=== PATIENT | male | born 1945 | race Caucasian/White ===

== ENCOUNTER 2024-10-29 15:31 | Emergency (ER) | payer OTHER, BC ==
--- OUTSIDE RECORDS SUMMARY | 2024-10-29 15:34 | XMS REPORT | Continuity of Care Document ---
Author Name Unknown Address [address] [facility] [address] [place] [address] [facility] Address [address] [facility] [address] [place] [address] Care Team Providers Care Digester Hand Name Role Phone Pcp, Patient Does Not Have A Primary Care Physic hebert Keven Montemayor Attending Clinician Unavailable Ayo Dangelo MD Attending Clinic hebert Darya Chin MD Attending Clinician [phone] DELIA MONTEMAYOR Attending Clinician Unavailable GERMAINE JACKSON Attending Clinician Unavailab Germaine Chen Attending Clinician Unknown, Attending Attending Clinician Unavailab le Doctor Unassigned, [place] Attending Clinician U NAV Cornelius Attending Clinician Unavailable ADALI PRADHAN Attending Clinician Unavail able AYO DANGELO Admitting Clinician Unav ailNAV Byrnes Admitting Clinician Unavailable Payers Payer Name Policy Type Policy Number Effective Date Expiration Date Source MEDICARE PART A \T\ B [id number] 2010 00:00:00 [facility] [id number] 2021 00:00:00 [place] [id number] 2010 00:00:00 [facility] MEDICARE JACY EVANS [id number] 2010 00:00:00 [facility] Problems Condition Name Condition Details Condition Category Status Onset Date Resolution Date Last Treatment Date Treating Clinician Comments Source Unspecifie d urinary incontinen ce Unspecifie d urinary incontinen ce Disease Active 04-08 00:00: 00 [facility] st Urinary incontinen ce Urinary incontinen ce Disease Active 08-11 00:00: 00 [facility] Incontinen ce Incontinen ce Disease Active 05-26 00:00: 00 [facility] Malignant neoplasm of upper lobe, 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, right bronchus or lung Problem [facility] OAG - Open-angle glaucoma Unspecifie d open-angle glaucoma, stage unspecifie d Problem [facility] Malignant neoplasm of middle lobe, 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, bronchus or lung Problem [facility] Chronic fatigue syndrome Chronic fatigue Problem [facility] [id number] Glaucoma of both eyes, unspecifie d glaucoma type Problem [facility] [id number] History of prostatect teresa Problem [facility] [id number] Body mass index (BMI) 33.0-33.9, adult Problem [facility] Secondary malignant neoplasm of lung Secondary malignant neoplasm of unspecifie d lung Problem [facility] [id number] Other obesity due to excess calories Problem [facility] Malignant tumor of prostate Malignant neoplasm of prostate Problem [facility] [id number] Chronic nasal congestion Problem [facility] [id number] Asymptomat ic hypertensi ve urgency Problem [facility] [id number] Allergic rhinitis, unspecifie d seasonalit y, unspecifie d trigger Problem [facility] [id number] Other chronic sinusitis Problem [facility] 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 Predn[facility] ne Propensi ty to adverse reaction s to drug Active Other (See Comments) 12-04 00:00: 00 Other reaction( s): Eye Pressure [facility] st PREDNISO NE DRUG INGREDI Active Other-Cmnt 12-04 00:00: 00 [facility] Predniso ne Propensi ty to adverse reaction s Active Other - See comments 12-04 00:00: 00 Other reaction( s): Eye Pressure [facility] predniso ne predniso ne Active Eye Pressure [facility] NO KNOWN ALLERGIE S Drug Class Active [facility] Family History Family Member Diagnosis Comments Start Date Stop Date Sourc e Natural father Alzheimer's disease German turcios Paternal grandfather Diabetes German Bejarano Social History Social Habit Start Date Stop Date Quantity Comments Source History of tobacco use Light tobacco smoker German Bejarano Sexual orientation H oucee Bejarano Alcoholic beverage intake 2024-10-14 00:00:00 2024-10-14 00:00:00 Current drinker of alcohol (finding) German Bejarano History of Social function 2024-10-14 00:00:00 2024-10-14 00:00:00 German Bejarano Exposure to SARS-CoV-2 (event) 2022-01-24 00:00:00 2022-02-03 10:54:00 Not sure [facility] Tobacco use and exposure 2022-01-03 00:00:00 2022-01-03 00:00:00 User of smokeless tobacco German Bejarano Tobacco Comment 2022-01-03 00:00:00 2022-01-03 00:00:00 cigar = x1/month / smokeless tobacco x 48 years , quit 2009 German Bejarano Alcohol Comment 2016-04-28 00:00:00 2016-04-28 00:00:00 x1 / day German Bejarano Sex assigned at 1945 00:00:00 1945 00:00:00 M German Bejarano Smoking Status Start Date Stop Date Source Tobacco smoking consumption unknown [facility] Light tobacco smoker 2022-01-03 00:00:00 German Bejarano Never Smoker [facility] Medications Ordered Medication Name Filled Medication Name Start Date Stop Date Current Medication? Ordering Clinician Indication Dosage Frequency Signature (SIG) Comments Components Source ASCORBATE CALCIUM (VITAMIN C ORAL) 10-30 10:11: 52 Yes 500mg QD Take 500 mg by mouth daily. German kelsey bicalutamid e (CASODEX) 50 mg chemo tablet 10-30 10:11: 52 Yes 1 tablet Orally Once a day for 30 day(s) German kelsey triptorelin pamoate (Trelstar) 11.25 mg suspension for reconstitut ion 10-30 10:11: 52 Yes Q30D every 30 (thirty) days. German kelsey timolo/brim on/dorzo/la tanop/PF (timoL-brim on-dorzo-la tanop,PF,) 0.5 %-0.15 %- 2 %-0.005 % drops 10-30 10:11: 52 Yes 1[drp] Q.5D Apply 1 drop to eye 2 (two) times a day. German kelsey multivitami n tablet 10-30 10:11: 52 Yes 1{tbl} QD Take 1 tablet by mouth daily. German Melo aspirin 325 MG tablet 10-30 10:11: 52 Yes 325mg QD Take 1 tablet (325 mg total) by mouth daily. German kelsey cetirizine- pseudoepHED rine (ZyrTEC-D) 5-120 mg per 12 hr tablet 10-30 10:11: 52 Yes 1{tbl} Q.5D Take 1 tablet by mouth 2 (two) times a day as needed for allergies. [facility] diphenhydrA MINE (BENADRYL) 25 mg capsule 10-30 10:11: 52 Yes 25mg QD Take 1 capsule (25 mg total) by mouth nightly as needed for sleep. [facility] st acetaminoph en (TYLENOL) 325 MG tablet 10-30 10:11: 52 Yes 325mg Q6H Take 1 tablet (325 mg total) by mouth every 6 (six) hours as needed for fever. [facility] st denosumab (PROLIA) 60 mg/mL syringe syringe 10-30 10:11: 52 Yes 60mg Inject 1 mL (60 mg total) under the skin once. [facility] st leuprolide (ELIGARD) 7.5 mg (1 month) syringe 10-30 10:11: 52 Yes Inject under the skin once. [facility] enzalutamid e (Xtandi) 40 mg tablet 10-30 10:11: 52 Yes QD Take by mouth daily. [facility] vibegron (Gemtesa) 75 mg tablet 2022-03 00:00: 00 Yes 75mg QD Take 75 mg by mouth daily. [facility] ASCORBATE CALCIUM, VITAMIN C, ORAL 2021-03 10:58: 42 Yes 500mg Take 500 mg by mouth. [facility] bicalutamid e 50 mg tablet 2021-03 10:58: 42 Yes 1 tablet Orally Once a day for 30 day(s) [facility] Triptorelin Pamoate (TRELSTAR) 11.25 mg SusR 2021-03 10:58: 42 Yes Trelstar [facility] azithromyci n 250 mg tablet 2021-03 00:00: 00 Yes [id number] 250mg Take 1 tablet by mouth in the morning. [facility] benzonatate 200 mg capsule 2021-03 00:00: 00 02-14 05:59 :00 No [id number] 200mg Take 1 capsule by mouth 3 (three) times daily as needed for Cough for up to 10 days. [facility] albuterol 90 mcg/actuati on inhaler 2021-03 00:00: 00 02-14 05:59 :00 No [id number] 2{puff} Inhale 2 Puffs every 6 (six) hours as needed for Wheezing or Shortness of Breath for up to 10 days. [facility] bicalutamid e 50 mg tablet 2021-03 0 00:00: 00 Yes 50mg Take 50 mg by mouth every morning [facility] Azithromyci n 250 MG Azithromyci n 250 MG 09-30 00:00: 00 10-05 00:00 :00 No QD Azithromyc in 250 MG Ocuvite Adult Formula Ocuvite Adult Formula Yes Keven Montemayor as directed [facility] Zyrtec-D Allergy & Congestion Zyrtec-D Allergy & Congestion Yes Keven Montemayor 1 tablet as needed [facility] Vitamin C Vitamin C Yes Keven Montemayor as directed [facility] Bicalutamid e Bicalutamid e Yes Keven Montemayor 1 tablet [facility] Timolol Hemihydrate Timolol Hemihydrate Yes Keven Montemayor 1 drop into affected eye [facility] Lutein Lutein Yes Keven Montemayor 1 capsule with a meal [facility] Emergen-C Immune Emergen-C Immune Yes Keven Montemayor as directed [facility] Simbrinza Simbrinza Yes Keven Montemayor 1 drop [facility] Trelstar Trelstar No Vitamin C 500 MG Vitamin C 500 MG No Lutein 6 MG Lutein 6 MG No 1{capsu le_with _a_meal } QD Ocuvite Adult Formula - Ocuvite Adult Formula - No Ocuvite Adult Formula - Emergen-C Immune - Emergen-C Immune - No Emergen-C Immune - ZyrTEC-D Allergy & Congestion 5-120 MG ZyrTEC-D Allergy & Congestion 5-120 MG No 1{table t_as_ne eded} QD ZyrTEC-D Allergy & Congestion 5-120 MG Aspirin 325 MG Aspirin 325 MG No 1{table t} QD Aspirin 325 MG Simbrinza 1%/0.2% Simbrinza 1%/0.2% No 1{drop} Simbrinza 1%/0.2% Lutein 6 MG Lutein 6 MG No 1{capsu le_with _a_meal } QD Lutein 6 MG ZyrTEC-D Allergy & Congestion 5-120 MG ZyrTEC-D Allergy & Congestion 5-120 MG No 1{table t_as_ne eded} QD ZyrTEC-D Allergy & Congestion 5-120 MG Vitamin C 500 MG Vitamin C 500 MG No Vitamin C 500 MG Emergen-C Immune - Emergen-C Immune - No Emergen-C Immune - Ocuvite Adult Formula - Ocuvite Adult Formula - No Ocuvite Adult Formula - Aspirin 325 MG Aspirin 325 MG No 1{table t} QD Aspirin 325 MG Timolol Hemihydrate 0.25 % Timolol Hemihydrate 0.25 % No 1{drop_ into_af fected_ eye} QD Timolol Hemihydrat e 0.25 % Ocuvite Adult Formula - Ocuvite Adult Formula - No Ocuvite Adult Formula - Emergen-C Immune - Emergen-C Immune - No Emergen-C Immune - Vitamin C 500 MG Vitamin C 500 MG No Vitamin C 500 MG Lutein 6 MG Lutein 6 MG No 1{capsu le_with _a_meal } QD Lutein 6 MG ZyrTEC-D Allergy & Congestion 5-120 MG ZyrTEC-D Allergy & Congestion 5-120 MG No 1{table t_as_ne eded} QD ZyrTEC-D Allergy & Congestion 5-120 MG Aspirin 325 MG Aspirin 325 MG No 1{table t} QD Aspirin 325 MG Immunizations Ordered Immunization Name Filled Immunization Name Date Status Comments Source [facility] 2018-12-04 13:26:00 Completed [facility] 2018-12-04 13:26:00 [facility] 2018-12-04 13:26:00 [facility] 2018-12-04 00:00:00 Completed [facility] MODERNA COVID-19 MRNA VACCINATION Unknown Completed [facility] MODERNA COVID-19 MRNA VACCINATION Unknown Completed [facility] MRNA VACCINATION Unknown Completed German Bejarano FLUZONE TRIVALENT Unknown Completed Antelmo conleyfidelina Druze Vital Signs Vital Name Observation Time Observation Value Comments Yamilka ramirez Systolic blood pressure 2022-02-03 16:56:00 142 mm[Hg] [facility] Diastolic blood pressure 2022-02-03 16:56:00 62 mm[Hg] [facility] Body height 2022-02-03 16:56:00 190.5 cm [facility] Heart rate 2022-02-03 16:55:00 71 /min [facility] Body temperature 2022-02-03 16:55:00 36.72 Delisa [facility] Respiratory rate 2022-02-03 16:55:00 18 /min [facility] Body weight 2022-02-03 16:55:00 122.244 kg [facility] BMI 2022-02-03 16:55:00 33.69 kg/m2 [facility] Oxygen saturation in Arterial blood by Pulse oximetry 2022-02-03 16:55:00 98 /min [facility] height 2021-09-30 13:20:00 74 [in_i] Commo n [facility] weight 2021-09-30 13:20:00 265.1 [lb_av] Co [facility] bmi 2021-09-30 13:20:00 34.03 kg/m2 Comm on [facility] height 2021-03-31 10:00:00 74 [in_i] Commo n [facility] weight 2021-03-31 10:00:00 265.1 [lb_av] Co [facility] temperature 2021-03-31 10:00:00 97.5 [degF] Com mon [facility] bmi 2021-03-31 10:00:00 34.03 kg/m2 Comm on [facility] oximetry 2021-03-31 10:00:00 96 % Commo n [facility] respiratory rate 2021-03-31 10:00:00 17 /min [facility] blood pressure systolic 2021-03-31 10:00:00 135 mm[Hg] [facility] blood pressure diastolic 2021-03-31 10:00:00 71 mm[Hg] [facility] Procedures Procedure Date / Time Performed Performing Clinicia n Source XR CHEST 2 VW 2022-02-03 17:45:00 Germaine Jackson [facility] POCT SARS-COV-2 ANTIGEN (BINAX NOW) 2022-02-03 17:09:00 Faina Singleton [facility] ASSIGNMENT OF BENEFITS 2022-02-03 16:37:11 Docto r Unassigned, [place] [facility] Encounters Start Date/Time End Date/Time Encounter Type Admission Type Attending [facility] Care Facility Care Department Encounter ID Source 2023-11-15 14:06:00 Outpatient [facility] [id number] [facility] 2022-02-02 15:25:00 Outpatient Montemayor, Keven [facility] [id number] [facility] 2021-09-30 10:18:00 Outpatient Montemayor, Keven [facility] [id number] [facility] 2021-04-21 14:29:45 Outpatient Montemayor, Keven [facility] [id number] [facility] 2021-04-21 13:10:07 Outpatient Montemayor, Keven [facility] [id number] [facility] 2021-04-21 11:27:02 Outpatient Montemayor, Keven [facility] [id number] [facility] 2021-04-21 11:17:26 Outpatient Montemayor, Keven [facility] [id number] [facility] 2021-04-21 10:58:47 [facility] [id number] [facility] 2021-04-21 10:57:41 Outpatient Keven Montemayor [facility] [id number] [facility] 2024-10-14 00:00:00 2024-10-14 00:00:00 Outpatient MCKEON-SAND OVAL, AYO [facility] [id number] [facility] 2024-04-15 00:00:00 2024-04-15 00:00:00 Outpatient MCKEON-SAND OVAL, AYO [facility] [id number] [facility] 2024-02-13 00:00:00 2024-02-13 00:00:00 Outpatient DARYA CHIN [facility] [id number] [facility] 2023-10-24 00:00:00 2023-10-24 00:00:00 Outpatient MCKEON-SAND OVAL, AYO [facility] [id number] [facility] 2023-07-25 00:00:00 2023-07-25 00:00:00 Outpatient MCKEON-SAND OVAL, AYO [facility] [id number] [facility] 2023-04-26 00:00:00 2023-04-26 00:00:00 Outpatient MCKEON-SAND OVAL, AYO [facility] [id number] [facility] 2023-02-28 00:00:00 2023-02-28 00:00:00 Outpatient DARYA CHIN [facility] [id number] [facility] 2023-02-13 00:00:00 2023-02-13 00:00:00 Outpatient MCKEON-SAND OVAL, AYO [facility] [id number] [facility] 2023-01-11 00:00:00 2023-01-11 00:00:00 Outpatient MCKEON-SAND OVAL, AYO [facility] [id number] [facility] 2022-08-29 00:00:00 2022-08-29 00:00:00 Outpatient TOBI CHINIAN [facility] [id number] [facility] 2022-07-19 00:00:00 2022-07-19 00:00:00 Outpatient TOBI CHINIAN [facility] [id number] [facility] 2022-07-04 00:00:00 2022-07-04 00:00:00 Outpatient MCKEON-SAND OVAL, AYO [facility] [id number] [facility] 2022-05-24 00:00:00 2022-05-24 00:00:00 Outpatient MCKEON-SAND OVAL, AYO [facility] [id number] [facility] 2022-04-27 00:00:00 2022-04-27 00:00:00 Outpatient MCKEON-SAND OVAL, AYO [facility] [id number] [facility] 2022-04-11 00:00:00 2022-04-11 00:00:00 Outpatient MCKEON-SAND OVAL, AYO [facility] [id number] [facility] 2022-04-09 00:00:00 2022-04-09 00:00:00 Emergency MONTEMAYOR, DELIA [facility] [id number] [facility] 2022-04-08 00:00:00 2022-04-09 00:00:00 Outpatient MCKEON-SAND OVAL, AYO [facility] [id number] [facility] 2022-04-05 00:00:00 2022-04-05 00:00:00 Outpatient MCKEON-SAND OVAL, AYO [facility] [id number] [facility] 2022-04-05 00:00:00 2022-04-05 00:00:00 Outpatient MCKEON-SAND OVAL, AYO [facility] [id number] [facility] 2022-02-14 00:00:00 2022-02-14 00:00:00 Outpatient GIUSEPPE, DARYA [facility] [id number] [facility] 2022-02-11 00:00:00 2022-02-11 00:00:00 Outpatient MCKEON-SAND OVAL, AYO [facility] [id number] [facility] 2022-02-03 11:11:43 2022-02-03 23:59:00 Outpatient GERMAINE MADDEN [facility] [id number] [facility] 2022-02-03 11:11:43 2022-02-03 23:59:00 Hospital Encounter Germaine Jackson [facility] [id number] [facility] 2022-02-03 10:40:00 2022-02-03 11:23:22 Urgent Care Germaine Jackson Unknown, Attending [facility] [id number] [facility] 2022-02-03 00:00:00 2022-02-03 00:00:00 Orders Only Doctor Unassigned, [place] [facility] [id number] [facility] 2022-02-02 00:00:00 2022-02-02 00:00:00 (TEL) [facility] [id number] [facility] 2022-01-03 00:00:00 2022-01-03 00:00:00 Outpatient MCKEON-SAND OVAL, AYO [facility] [id number] [facility] 2022-01-03 00:00:00 2022-01-03 00:00:00 Outpatient MCKEON-SAND OVAL, AYO [facility] [id number] [facility] 2022-01-03 00:00:00 2022-01-03 00:00:00 Outpatient MCKEON-SAND OVAL, AYO [facility] [id number] [facility] 2021-11-16 14:00:00 2021-11-17 11:52:00 Outpatient NAV [facility] [id number] [facility] 2021-09-30 00:00:00 2021-09-30 00:00:00 (TEL) STLMLC STLMLC [id number] [facility] 2021-09-30 00:00:00 2021-09-30 00:00:00 OL HALINA E/M SVC 11-20 MIN STLMLC STLMLC [id number] [facility] 2021-09-30 00:00:00 2021-09-30 00:00:00 (TEL) STLMLC STLMLC [id number] [facility] 2021-09-14 00:00:00 2021-09-14 00:00:00 (TEL) STLMLC STLMLC [id number] [facility] 2021-08-31 00:00:00 2021-08-31 00:00:00 Outpatient MCKEON-SAND OVAL, AYO [facility] [id number] [facility] 2021-08-12 00:00:00 2021-08-12 00:00:00 (TEL) STLMLC STLMLC [id number] [facility] 2021-04-20 00:00:00 2021-04-20 00:00:00 (TEL) STLMLC STLMLC [id number] [facility] 2021-03-31 00:00:00 2021-03-31 00:00:00 OFFICE VISIT ESTAB PT LEVEL 4 STLMLC STLMLC [id number] [facility] 2021-03-31 00:00:00 2021-03-31 00:00:00 (TEL) STLMLC STLMLC [id number] [facility] 2021-03-25 00:00:00 2021-03-25 00:00:00 (TEL) STLMLC STLMLC [id number] [facility] 2021-03-01 00:00:00 2021-03-01 00:00:00 Outpatient MCKEON-SAND OVAL, AYO [facility] [id number] [facility] 2021-01-19 00:00:00 2021-01-19 00:00:00 Outpatient MCKEON-SAND OVAL, AYO [facility] [id number] [facility] 2021-01-12 00:00:00 2021-01-12 00:00:00 Outpatient MIKE-AYO ESPITIA [facility] [id number] [facility] 2020-12-30 00:00:00 2020-12-30 00:00:00 (TEL) STLMLC STLMLC [id number] [facility] 2020-11-17 00:00:00 2020-11-17 00:00:00 Outpatient DARYA CHIN [facility] [id number] [facility] 2020-06-04 09:47:00 2020-06-04 23:59:00 Outpatient ADALI PRADHAN [id number] [facility] 2019-12-17 00:00:00 2019-12-17 00:00:00 Outpatient DARYA CHIN [facility] [id number] [facility] 2019-12-10 00:00:00 2019-12-10 00:00:00 Outpatient DARYA CHIN [facility] [id number] [facility] 2019-10-10 00:00:00 2019-10-10 00:00:00 Outpatient STLMLC STLC [id number] [facility] 2019-09-11 12:01:00 2019-09-11 12:01:00 Outpatient [facility] [id number] [facility] 2019-07-04 00:00:00 2019-07-04 00:00:00 Outpatient MIKE-AYO ESPITIA [facility] [id number] [facility] 2019-06-04 00:00:00 2019-06-04 00:00:00 Outpatient DARYA CHIN [facility] [id number] [facility] 2019-06-03 00:00:00 2019-06-03 00:00:00 Outpatient MIKE-AYO ESPITIA [facility] [id number] [facility] 2019-04-03 14:00:00 2019-04-03 14:00:00 Outpatient [facility] [id number] [facility] 2018-12-04 13:00:00 2018-12-04 13:00:[address] [facility] [address] [facility] Medicine [id number] [facility] 2018-06-13 15:40:00 2018-06-13 15:40:[address] [facility] [address] [facility] [address] [facility] Medicine [id number] [facility] [place] [facility] 2018-06-11 11:45:00 2018-06-11 11:45:[address] [facility] [address] [place] [address] [facility] [id number] [facility] 2018-06-07 14:30:00 2018-06-07 14:30:00 [facility] [address] [place] [facility] Medicine [id number] [facility] 2018-04-10 11:00:00 2018-04-10 11:00:[address] [facility] [address] [place] [facility] Medicine [id number] [facility] 2018-03-08 15:45:00 2018-03-08 15:45:[address] [facility] [address] [facility] [place] [facility] Medicine [id number] [facility] Results Test Description Test Time Test Comments Results Result [facility] m[facility] Ant[facility] + Flu by Aman COVID 19 Antigen + Flu by Tereza
[2024-10-29] MEDS ORDERED: LIDOCAINE 2% W/EPI 1:200,000 MPF 20 ML VIAL IM ONE (16:08)
[2024-10-29] MEDS ORDERED: TDAP (DIPHTH,PERTUSS(ACELL),TET VAC) 0.5 ML VIAL IMVAC ONE (16:08)
--- NOTE | 2024-10-29 16:31 | RAD REPORT ---
EXAMINATION: XR Tib Fib Left CLINICAL INDICATION: Male, 79 years old. PAIN TECHNIQUE: 2 view radiograph of the left tibia and fibula were obtained. COMPARISON: No prior exam. FINDINGS: No evidence of fracture or dislocation. Normal alignment. Mild knee and ankle joint degener ative changes. Soft tissue swelling about the distal lower leg. Moderate calcaneal spur. Enthesopathy at the Achilles tendon attachment. No other focal bone lesion. IMPRESSION: No acute osseous abnormalities. Soft tissue swelling about the distal lower leg. Degenerative changes as above.
--- NOTE | 2024-10-29 17:01 | ER ---
Nurse's Notes [facility] Name: Rajiv Nath Age: 79 yrs Sex: Male : 1945 Arrival Date: 10/29/2024 Time: 15:31 Bed 7 Private MD: Diagnosis: Laceration without foreign body of lower leg-left Presentation: 10/29 15:47 Chief complaint: Patient states: fell out of his recliner, fell to the floor , iw laceration to left kimbrough , dressing in place, states he fell asleep and fell out of the recliner. 15:47 Acuity: MARIA A 3 iw 15:48 Coronavirus screen: At this time, the client does not indicate any symptoms associated iw with coronavirus-19. Ebola Screen: Patient negative for fever greater than or equal to 101.5 degrees Fahrenheit, and additional compatible Ebola Virus Disease symptoms No symptoms or risks identified at this time. Initial Sepsis Screen: Does the patient meet any 2 criteria? No. Patient's initial sepsis screen is negative. Does the patient have a suspected source of infection? No. Patient's initial sepsis screen is negative. Risk Assessment: Do you want to hurt yourself or someone else? Patient reports no desire to harm self or others. Onset of symptoms was October 29, 2024. 15:48 Method Of Arrival: Wheelchair iw Triage Assessment: 16:00 General: Appears in no apparent distress. uncomfortable, Behavior is calm, cooperative, bp appropriate for age. Pain: Complains of pain in left leg. EENT: No deficits noted. Neuro: No deficits noted. Cardiovascular: No deficits noted. Respiratory: No deficits noted. GI: No signs and/or symptoms were reported involving the gastrointestinal system. : No signs and/or symptoms were reported regarding the genitourinary system. Derm: No deficits noted. Musculoskeletal: No deficits noted. Injury Description: Laceration sustained to left leg is 2.6 to 7.5 cm long, was sustained 30-60 minutes ago. a small amount of bleeding noted at this time. 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 - Infectious Disease History:: Denies. - Social history:: Smoking status: Patient reports the use of cigarette tobacco products, cigars. Screenin:00 [facility] ED Fall Risk Assessment (Adult) History of falling in the last 3 months, bp including since admission Yes- single mechanical fall (1 pt) Confusion or Disorientation No (0 pts) Intoxicated or Sedated No (0 pts) Impaired Gait No (0 pts) Mobility Assist Device Used Yes (1 pt) Altered Elimination No (0 pt) Score/Fall Risk Level 0 - 2 = Low Risk Oriented to surroundings. Abuse screen: Denies threats or abuse. Denies injuries from another. Nutritional screening: No deficits noted. Tuberculosis screening: No symptoms or risk factors identified. Assessment: 16:00 General: SEE TRIAGE NOTE. bp Vital Signs: 15:49 BP 142 / 73; Pulse 77; Resp 18; Temp 98.8(O); Pulse Ox 95% on R/A; Weight 120.2 kg; iw Height 5 ft. 11 in. ; Pain 0/10; 17:17 BP 151 / 69; Pulse 79; Resp 16; Pulse Ox 96% ; bp 15:49 Body Mass Index 36.96 (120.20 kg, 180.34 cm) iw 15:49 Pain Scale: Adult iw ED Course: 15:36 Patient arrived in ED. im 15:37 Phuc Robertson PA is PHCP. cp 15:37 La Montemayor MD is Attending Physician. cp 15:48 Triage completed. iw 15:50 Arm band placed on. iw 15:54 Ian Montilla, SHAHID is Primary Nurse. bp 16:00 Patient has correct armband on for positive identification. bp 16:07 XRAY Tib Fib LEFT In Process Unspecified. EDMS 17:14 Assist provider with laceration repair on left leg that was between 2.6 to 7.5 cm using bp sutures. Set up tray. Performed by Phuc ASENCIO Dressed with Neosporin, Patient tolerated well. Wound care: to laceration located on left leg was dressed with Neosporin, Patient tolerated well. 17:17 Patient did not have IV access during this emergency room visit. bp Administered Medications: 16:12 Drug: Boostrix Tdap IM 0.5 ml IM once; as a single dose Route: IM; Site: right deltoid; bp 17:18 Follow up: Response: No adverse reaction bp 16:12 Drug: Lidocaine Infiltration (2 %) 20 ml 5 ml Infiltration once; to bedside with bp epinephrine Volume: 5 ml; Route: Infiltration; Medication: 16:00 VIS not applicable for this client. bp Outcome: 17:00 Discharge ordered by . cp 17:40 Discharged to home via wheelchair, with family, alejandro 17:40 Condition: good 17:40 Discharge instructions given to patient, Instructed on discharge instructions, follow up and referral plans. medication usage, wound care, Demonstrated understanding of instructions, follow-up care, medications, wound care, Prescriptions given X 1, 17:40 Patient left the ED. [id number] Signatures: Dispatcher [employer] EDMS Ierne Tello RN RN iw Phuc Robertson PA PA cp Peltier, Brian, RN RN Tia Martinez RN RN kc6 Rachel Bustillos Corrections: (The following items were deleted from the chart) 15:51 15:49 BP 142 / 73; Pulse 77bpm; Resp 18bpm; Pulse Ox 95% RA; 120.2 kg; Height 5 ft. 11 iw in.; BMI: 36.9; Pain 0/10, Adult; iw
--- NOTE | 2024-10-29 17:01 | EDPHYS ---
Physician Documentation [facility] Name: Rajiv Nath Age: 79 yrs Sex: Male : 1945 Arrival Date: 10/29/2024 Time: 15:31 Bed 7 Private MD: ED Physician La Montemayor HPI: 10/29 15:47 This 79 yrs old Male presents to ER via Unassigned with complaints of Fall Injury, cp Laceration To Leg. 15:47 Details of fall: The patient fell from seated position, out of a chair. cp 15:47 Onset: The symptoms/episode began/occurred just prior to arrival. Associated injuries: cp The patient sustained left kimbrough, laceration. 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 - Infectious Disease History:: Denies. - Social history:: Smoking status: Patient reports the use of cigarette tobacco products, cigars. ROS: 15:47 MS/extremity: Positive for laceration, of the left lower leg, injury, cp 15:47 Constitutional: Negative for body aches, chills, fever, poor PO intake, cp 15:47 Neck: Negative for pain with movement, pain at rest, stiffness, cp 15:47 Cardiovascular: Negative for chest pain, 15:47 Respiratory: Negative for cough, shortness of breath, wheezing, 15:47 Back: Negative for pain at rest, pain with movement, 15:47 Neuro: Negative for altered mental status, dizziness, headache, syncope, near syncope, weakness, 15:47 All other systems are negative, Exam: 15:50 Constitutional: The patient appears in no acute distress, alert, awake, cp non-diaphoretic, well developed, well nourished, 15:50 Head/Face: Normocephalic, atraumatic. cp 15:50 Neck: ROM/movement: is normal, is supple, without pain, no range of motions limitations, 15:50 Chest/axilla: Inspection: normal, Palpation: is normal, no crepitus, no tenderness, 15:50 Cardiovascular: Rate: normal, 15:50 Respiratory: the patient does not display signs of respiratory distress, Respirations: normal, no use of accessory muscles, no retractions, labored breathing, is not present, Breath sounds: are clear throughout, no decreased breath sounds, 15:50 Abdomen/GI: Inspection: abdomen appears normal, Palpation: abdomen is soft and non-tender, in all quadrants, 15:50 Back: pain, is absent, ROM is normal, 15:50 Musculoskeletal/extremity: Extremities: noted in the left kimbrough: laceration, tenderness, There is no evidence of deformity, 15:50 Neuro: Orientation: to person, place \T\ time. Mentation: is normal, Motor: moves all fours, no focal deficits, Sensation: no obvious gross deficits, Vital Signs: 15:49 BP 142 / 73; Pulse 77; Resp 18; Temp 98.8(O); Pulse Ox 95% on R/A; Weight 120.2 kg; iw Height 5 ft. 11 in. ; Pain 0/10; 17:17 BP 151 / 69; Pulse 79; Resp 16; Pulse Ox 96% ; bp 15:49 Body Mass Index 36.96 (120.20 kg, 180.34 cm) iw 15:49 Pain Scale: Adult iw Laceration: 17:00 Wound Repair of 4cm ( 1.6in ) subcutaneous laceration to left kimbrough. Irregularly cp shaped.. Skin/tissue flap noted.. Distal neuro/vascular/tendon intact. Anesthesia: Local anesthetic administered with 6 mls of 2% lidocaine. Wound prep: Moderate cleansing by me. Skin closed with 5 4-0 Prolene using interrupted sutures and sterile technique. Dressed with Bacitracin, 4x4's. Patient tolerated well. MDM: 15:44 Medical Screening Exam initiated cp 16:30 Differential diagnosis: closed head injury, contusion, fracture, laceration, multiple cp trauma. 17:00 Data reviewed: vital signs, nurses notes, radiologic studies, plain films, and as a cp result, I will discharge patient. 17:00 I considered the following discharge prescriptions or medication management in the cp emergency department Medications were administered in the Emergency Department. See MAR. 17:00 Independent interpretation of the following test(s) in the Emergency Department X-Ray: cp My interpretation is images of left tib/fib negative for fracture. Care significantly affected by the following chronic conditions: Cancer. Counseling: I had a detailed discussion with the patient and/or guardian regarding the historical points, exam findings, and any diagnostic results supporting the discharge/admit diagnosis, radiology results, the need for outpatient follow up, a family practitioner, to return to the emergency department if symptoms worsen or persist or if there are any questions or concerns that arise at home. Response to treatment: the patient's symptoms have mildly improved after treatment, and as a result, I will discharge patient. Special discussion: I discussed in detail with the patient the higher chance of wound infection based on his presenting history. 10/29 16:00 Order name: XRAY Tib Fib LEFT; Complete Time: 16:37 cp 10/29 16:38 Interpretation: Report reviewed. cp 10/29 16:59 Order name: Wound dressing; Complete Time: 17:14 cp Administered Medications: 16:12 Drug: Boostrix Tdap IM 0.5 ml IM once; as a single dose Route: IM; Site: right deltoid; bp 17:18 Follow up: Response: No adverse reaction bp 16:12 Drug: Lidocaine Infiltration (2 %) 20 ml 5 ml Infiltration once; to bedside with bp epinephrine Volume: 5 ml; Route: Infiltration; Disposition: 10/30 16:44 Chart complete. cp Disposition Summary: 10/29/24 17:00 Discharge Ordered Notes: Location: Home cp Problem: new cp Symptoms: have improved cp Condition: Stable cp Diagnosis - Laceration without foreign body of lower leg - left cp Followup: cp - With: Private Physician - When: 2 - 3 days - Reason: Wound Recheck Discharge Instructions: - Discharge Summary Sheet cp - Laceration Care, Adult cp - Sutured Wound Care cp Forms: - Medication Reconciliation Form cp - Antibiotic Education cp - Prescription Opioid Use cp - Patient Portal Instructions cp - Leadership Thank You Letter cp Prescriptions: - Cephalexin 500 mg Oral Capsule - take 1 capsule ORAL route every 8 hours for 10 days; 30 capsule; Refills: 0, cp Product Selection Permitted Signatures: Dispatcher [employer] Irene Pittman, RN Phuc Tabor PA PA cp Peltier, Brian, RN RN bp
[2024-10-29 17:46] VITALS: TEMP 98.8
[2024-10-29 17:47] VITALS: BP 151/69; O2SAT 96
== END 2024-10-29 17:40 | disposition home or self-care (01) ==
LOC: ER 15:31
PROC: 0JQP3ZZ Repair Left Lower Leg Subcutaneous Tissue and Fascia, Percutaneous Approach (ICD-10-PCS; principal; 2024-10-29)
DX: S81.812A Laceration without foreign body, left lower leg, initial encounter (principal); W08.XXXA Fall from other furniture, initial encounter; Z23 Encounter for immunization
CPT/HCPCS: 90715; 96372; 99284

== ENCOUNTER 2024-11-18 11:34 | Emergency (ER) | payer OTHER, BC ==
--- OUTSIDE RECORDS SUMMARY | 2024-11-18 11:38 | XMS REPORT | Continuity of Care Document ---
Author Name Unknown Address [address] [place] [address] Organization [facility] [place] Address [address] [place] [address] Care Team Providers Care Otorhinolaryngologist Name Role Phone Asked, No Pcp Primary Care Physician Unavailab Keven No Attending Clinician Unavailable Camden Faith Attending Clinician [phone] Unknown, Attending Attending Clinician Unavailab Ayo Zambrano MD Attending Clinic hebert Darya Chin MD Attending Clinician [phone] DELIA MONTEMAYOR Attending Clinician Unavailable GERMAINE JACKSON Attending Clinician Unavailab Germaine Chen Attending Clinician Unknown, Attending Attending Clinician Unavailab le Doctor Unassigned, [place] Attending Clinician U NAV Cornelius Attending Clinician Unavailable ADALI PRADHAN Attending Clinician Unavail able AYO DANGELO Admitting Clinician Unav ailable NAV BLEDSOE Admitting Clinician Unavailable Payers Payer Name Policy Type Policy Number Effective Date Expirati on Date Source [facility] 6 [id number] 2010 00:00:00 [facility] MEDICARE JACY [id number] 2010 00:00:00 [facility] Problems Condition Name Condition Details Condition Category Status Onset Date Resolution Date Last Treatment Date Treating Clinician Comments Source Unspecifie d urinary incontinen ce Unspecifie d urinary incontinen ce Disease Active 04-08 00:00: 00 [facility] st Urinary incontinen ce Urinary incontinen ce Disease Active 08-11 00:00: 00 [facility] Incontinen ce Incontinen ce Disease Active 05-26 00:00: 00 [facility] No known active problems No known active problems Disease 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, bronchus or lung Problem [facility] Chronic fatigue syndrome Chronic fatigue Problem [facility] [id number] Glaucoma of both eyes, unspecifie d glaucoma type Problem [facility] [id number] History of prostatect teresa Problem [facility] [id number] Body mass index (BMI) 33.0-33.9, adult Problem [facility] Secondary malignant neoplasm of lung Secondary malignant neoplasm of unspecifie d lung Problem [facility] [id number] Other obesity due to excess calories Problem [facility] Malignant tumor of prostate Malignant neoplasm of prostate Problem [facility] [id number] Chronic nasal congestion Problem [facility] [id number] Asymptomat ic hypertensi ve urgency Problem [facility] [id number] Allergic rhinitis, unspecifie d seasonalit y, unspecifie d trigger Problem [facility] [id number] Other chronic sinusitis Problem [facility] 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 Problem [facility] Allergies, Adverse Reactions, Alerts Allergy Name Allergy Type Status Severity Reaction(s) Onset Date Inactive Date Treating Clinician Comments Source Other Propensi ty to adverse reaction s Active Other (See Comments) 04-05 00:00: 00 EXTREME ANXIETY OVER PUTTING OXYGEN MASK ON = Claustrop hobia [facility] st Predniso ne Propensi ty to adverse reaction s to drug Active Other (See Comments) 12-04 00:00: 00 Other reaction( s): Eye Pressure [facility] st PREDNISO NE DRUG INGREDI Active Other-Cmnt 12-04 00:00: 00 [facility] Predniso ne Propensi ty to adverse reaction s Active Other - See comments 12-04 00:00: 00 Other reaction( s): Eye Pressure [facility] predniso ne predniso ne Active Eye Pressure [facility] NO KNOWN ALLERGIE S Drug Class Active [facility] Family History Family Member Diagnosis Comments Start Date Stop Date Sourc e Natural father Alzheimer's disease German Gerardo t Paternal grandfather Diabetes German Bejarano Social History Social Habit Start Date Stop Date Quantity Comments Source History of tobacco use Snuff User [facility] Sexual orientation H oucee Bejarano Alcoholic beverage intake 2024-10-14 00:00:00 2024-10-14 00:00:00 Current drinker of alcohol (finding) German Bejarano History of Social function 2024-10-14 00:00:00 2024-10-14 00:00:00 German Bejarano Exposure to SARS-CoV-2 (event) 2022-01-24 00:00:00 2022-02-03 10:54:00 Not sure [facility] Tobacco use and exposure 2022-01-03 00:00:00 2022-01-03 00:00:00 User of smokeless tobacco German Bejarano Tobacco Comment 2022-01-03 00:00:00 2022-01-03 00:00:00 cigar = x1/month / smokeless tobacco x 48 years , quit 2009 German Bejarano Alcohol Comment 2016-04-28 00:00:00 2016-04-28 00:00:00 x1 / day German Bejarano Sex assigned at 1945 00:00:00 1945 00:00:00 M Porter Mormon Smoking Status Start Date Stop Date Source Tobacco smoking consumption unknown [facility] Light tobacco smoker 2022-01-03 00:00:00 German Bejarano Never Smoker [facility] Medications Ordered Medication Name Filled Medication Name Start Date Stop Date Current Medication? Ordering Clinician Indication Dosage Frequency Signature (SIG) Comments Components Source amoxicillin -pot clavulanate 875-125 mg per tablet 11-12 00:00: 00 11-23 04:59 :00 Yes [id number] 1{tbl} Take 1 tablet by mouth in the morning and 1 tablet in the evening. Do all this for 10 days. [facility] cephALEXin 500 mg capsule 10-29 00:00: 00 Yes TAKE 1 CAPSULE BY MOUTH EVERY 8 HOURS FOR 10 DAYS [facility] CALCIUM ORAL 10-30 10:11: 52 Yes 1000mg Q.5D Take 1,000 mg by mouth 2 (two) times a day. [facility] bicalutamid e (CASODEX) 50 mg chemo tablet 10-30 10:11: 52 Yes 1 tablet Orally Once a day for 30 day(s) [facility] triptorelin pamoate (Trelstar) 11.25 mg suspension for reconstitut ion 10-30 10:11: 52 Yes Q30D every 30 (thirty) days. [facility] timolo/brim on/dorzo/la tanop/PF (timoL-brim on-dorzo-la tanop,PF,) 0.5 %-0.15 %- 2 %-0.005 % drops 10-30 10:11: 52 Yes 1[drp] Q.5D Apply 1 drop to eye 2 (two) times a day. [facility] multivitami n tablet 10-30 10:11: 52 Yes 1{tbl} QD Take 1 tablet by mouth daily. [facility] aspirin 325 MG tablet 10-30 10:11: 52 Yes 325mg QD Take 1 tablet (325 mg total) by mouth daily. [facility] cetirizine- pseudoepHED rine (ZyrTEC-D) 5-120 mg per 12 hr tablet 10-30 10:11: 52 Yes 1{tbl} Q.5D Take 1 tablet by mouth 2 (two) times a day as needed for allergies. [facility] diphenhydrA MINE (BENADRYL) 25 mg capsule 10-30 10:11: 52 Yes 25mg QD Take 1 capsule (25 mg total) by mouth nightly as needed for sleep. [facility] acetaminoph en (TYLENOL) 325 MG tablet 10-30 10:11: 52 Yes 325mg Q6H Take 1 tablet (325 mg total) by mouth every 6 (six) hours as needed for fever. [facility] denosumab (PROLIA) 60 mg/mL syringe syringe 10-30 10:11: 52 Yes 60mg Inject 1 mL (60 mg total) under the skin once. [facility] leuprolide (ELIGARD) 7.5 mg (1 month) syringe 10-30 10:11: 52 Yes Inject under the skin once. [facility] enzalutamid e (Xtandi) 40 mg tablet 10-30 10:11: 52 Yes QD Take by mouth daily. [facility] vibegron (Gemtesa) 75 mg tablet 2022-03 00:00: 00 Yes 75mg QD Take 75 mg by mouth daily. [facility] ASCORBATE CALCIUM, VITAMIN C, ORAL 2021-03 10:58: 42 Yes 500mg Take 500 mg by mouth. [facility] bicalutamid e 50 mg tablet 2021-03 10:58: 42 Yes 1 tablet Orally Once a day for 30 day(s) [facility] Triptorelin Pamoate (TRELSTAR) 11.25 mg SusR 2021-03 10:58: 42 Yes Trelstar [facility] azithromyci n 250 mg tablet 2021-03 00:00: 00 Yes [id number] 250mg Take 1 tablet by mouth in the morning. [facility] albuterol 90 mcg/actuati on inhaler 2021-03 00:00: 00 02-14 05:59 :00 No [id number] 2{puff} Inhale 2 Puffs every 6 (six) hours as needed for Wheezing or Shortness of Breath for up to 10 days. [facility] benzonatate 200 mg capsule 2021-03 00:00: 00 02-14 05:59 :00 No [id number] 200mg Take 1 capsule by mouth 3 (three) times daily as needed for Cough for up to 10 days. [facility] bicalutamid e 50 mg tablet 2021-03 00:00: 00 Yes 50mg Take 50 mg by mouth every morning [facility] Azithromyci n 250 MG Azithromyci n 250 MG 09-30 00:00: 00 10-05 00:00 :00 No QD Azithromyc in 250 MG Ocuvite Adult Formula Ocuvite Adult Formula Yes Keven Montemayor as directed [facility] Zyrtec-D Allergy & Congestion Zyrtec-D Allergy & Congestion Yes Keven Montemayor 1 tablet as needed [facility] Vitamin C Vitamin C Yes Keven Montemayor as directed [facility] Bicalutamid e Bicalutamid e Yes Keven Montemayor 1 tablet [facility] Timolol Hemihydrate Timolol Hemihydrate Yes Keven Montemayor 1 drop into affected eye [facility] Lutein Lutein Yes Keven Montemayor 1 capsule with a meal [facility] Emergen-C Immune Emergen-C Immune Yes Keven Montemayor as directed [facility] Simbrinza Simbrinza Yes Keven Montemayor 1 drop [facility] Trelstar Trelstar No Vitamin C 500 MG [...] Filled Immunization Name Date Status Comments Source Afluria Afluria 2018-12-04 13:26:00 [facility]pleted [facility] 2018-12-04 13:26:00 Completed [facility] 2018-12-04 13:26:00 Completed [facility] 2018-12-04 00:00:00 Completed [facility] MODERNA COVID-19 MRNA VACCINATION Unknown Completed [facility] MODERNA COVID-19 MRNA VACCINATION Unknown Completed [facility] MODERNA COVID-19 MRNA VACCINATION Unknown Completed [facility] FLUZONE TRIVALENT Unknown Completed [facility] Vital Signs Vital Name Observation Time Observation Value Comments S ource Systolic blood pressure 2024-11-12 23:05:00 149 mm[Hg] [facility] Diastolic blood pressure 2024-11-12 23:05:00 71 mm[Hg] [facility] Heart rate 2024-11-12 23:05:00 87 /min [facility] Body temperature 2024-11-12 23:05:00 36.72 Delisa [facility] Respiratory rate 2024-11-12 23:05:00 15 /min [facility] Body height 2024-11-12 23:05:00 180.3 cm [facility] Body weight 2024-11-12 23:05:00 117.935 kg [facility] BMI 2024-11-12 23:05:00 36.26 kg/m2 [facility] Oxygen saturation in Arterial blood by Pulse oximetry 2024-11-12 23:05:00 96 /min [facility] Systolic blood pressure 2022-02-03 16:56:00 142 mm[Hg] [facility] Diastolic blood pressure 2022-02-03 16:56:00 62 mm[Hg] [facility] Body height 2022-02-03 16:56:00 190.5 cm [facility] Heart rate 2022-02-03 16:55:00 71 /min [facility] Body temperature 2022-02-03 16:55:00 36.72 Delisa [facility] Respiratory rate 2022-02-03 16:55:00 18 /min [facility] Body weight 2022-02-03 16:55:00 122.244 kg [facility] BMI 2022-02-03 16:55:00 33.69 kg/m2 [facility] Oxygen saturation in Arterial blood by Pulse oximetry 2022-02-03 16:55:00 98 /min [facility] height 2021-09-30 13:20:00 74 [in_i] Commo n [facility] weight 2021-09-30 13:20:00 265.1 [lb_av] Co [facility] bmi 2021-09-30 13:20:00 34.03 kg/m2 Comm on [facility] height 2021-03-31 10:00:00 74 [in_i] Commo n [facility] weight 2021-03-31 10:00:00 265.1 [lb_av] Co [facility] temperature 2021-03-31 10:00:00 97.5 [degF] Com mon [facility] bmi 2021-03-31 10:00:00 34.03 kg/m2 Comm on [facility] oximetry 2021-03-31 10:00:00 96 % Commo n [facility] respiratory rate 2021-03-31 10:00:00 17 /min [facility] blood pressure systolic 2021-03-31 10:00:00 135 mm[Hg] [facility] blood pressure diastolic 2021-03-31 10:00:00 71 mm[Hg] [facility] Procedures Procedure Date / Time Performed Performing Clinicia n Source XR CHEST 2 VW 2022-02-03 [facility]:45[facility]-2 ANTIGEN (BINAX NOW) 2022-02-03 17:09:00 Faina Singleton [facility] ASSIGNMENT OF BENEFITS 2022-02-03 16:37:11 Docto r Unassigned, Sprague [facility] Encounters Start Date/Time End Date/Time Encounter Type Admission Type Attending [facility] Care Facility Care Department Encounter ID Source 2023-11-15 14:06:00 [facility] [id number] [facility] 2022-02-02 15:25:00 [facility] [id number] [facility] 2021-09-30 10:18:00 [facility] [id number] [facility] 2021-04-21 14:29:45 [facility] [id number] [facility] 2021-04-21 13:10:07 [facility] [id number] [facility] 2021-04-21 11:27:02 [facility] [id number] [facility] 2021-04-21 11:17:26 [facility] [id number] [facility] 2021-04-21 10:58:47 [facility] [id number] [facility] 2021-04-21 10:57:41 [facility] [id number] [facility] 2024-11-12 18:00:00 2024-11-12 18:08:06 Urgent Care R Camden Valladares Unknown, [facility]ending [facility] [id number] [facility] 2024-10-14 00:00:00 2024-10-14 00:00:00 Outpatient MCKEON-SAND OVAL, [facility]O [facility] [id number] [facility] 2024-04-15 00:00:00 2024-04-15 00:00:00 Outpatient MCKEON-SAND OVAL, AYO [facility] [id number] [facility] 2024-02-13 00:00:00 2024-02-13 00:00:00 Outpatient GIUSEPPE, DARYA [facility] [id number] [facility] 2023-10-24 00:00:00 2023-10-24 00:00:00 Outpatient MCKEON-SAND OVAL, AYO [facility] [id number] [facility] 2023-07-25 00:00:00 2023-07-25 00:00:00 Outpatient MCKEON-SAND OVAL, AYO [facility] [id number] [facility] 2023-04-26 00:00:00 2023-04-26 00:00:00 Outpatient MCKEON-SAND OVAL, AYO [facility] [id number] [facility] 2023-02-28 00:00:00 2023-02-28 00:00:00 Outpatient GIUSEPPE, DARYA [facility] [id number] [facility] 2023-02-13 00:00:00 2023-02-13 00:00:00 Outpatient MCKEON-SAND OVAL, AYO [facility] [id number] [facility] 2023-01-11 00:00:00 2023-01-11 00:00:00 Outpatient MCKEON-SAND OVAL, AYO [facility] [id number] [facility] 2022-08-29 00:00:00 2022-08-29 00:00:00 Outpatient MILES, DARYA [facility] [id number] [facility] 2022-07-19 00:00:00 2022-07-19 00:00:00 Outpatient MILES, DARYA [facility] [id number] [facility] 2022-07-04 00:00:00 2022-07-04 00:00:00 Outpatient MCKEON-SAND OVAL, AYO [facility] [id number] [facility] 2022-05-24 00:00:00 2022-05-24 00:00:00 Outpatient MCKEON-SAND OVAL, AYO [facility] [id number] [facility] 2022-04-27 00:00:00 2022-04-27 00:00:00 Outpatient MCKEON-SAND OVAL, AYO [facility] [id number] [facility] 2022-04-11 00:00:00 2022-04-11 00:00:00 Outpatient MCKEON-SAND OVAL, AYO [facility] [id number] [facility] 2022-04-09 00:00:00 2022-04-09 00:00:00 Emergency MONTEMAYORDELIA [facility] [id number] [facility] 2022-04-08 00:00:00 2022-04-09 00:00:00 Outpatient MCKEON-SAND OVAL, AYO [facility] [id number] [facility] 2022-04-05 00:00:00 2022-04-05 00:00:00 Outpatient MCKEON-SAND OVAL, AYO [facility] [id number] [facility] 2022-04-05 00:00:00 2022-04-05 00:00:00 Outpatient MCKEON-SAND OVAL, AYO [facility] [id number] [facility] 2022-02-14 00:00:00 2022-02-14 00:00:00 Outpatient DARYA CHIN [facility] [id number] [facility] 2022-02-11 00:00:00 2022-02-11 00:00:00 Outpatient MCKEON-SAND OVAL, AYO [facility] [id number] [facility] 2022-02-03 11:11:43 2022-02-03 23:59:00 Outpatient R [facility] [id number] [facility] 2022-02-03 11:11:43 2022-02-03 23:59:00 Hospital Encounter Germaine Jackson [facility] [id number] [facility] 2022-02-03 10:40:00 2022-02-03 11:23:22 Urgent Care Germaine Jackson Unknown, Attending [facility] [id number] [facility] 2022-02-03 00:00:00 2022-02-03 00:00:00 Orders Only Doctor Unassigned, Sprague [facility] [id number] [facility] 2022-02-02 00:00:00 2022-02-02 00:00:00 (TEL) STLC STLC [id number] [facility] 2022-01-03 00:00:00 2022-01-03 00:00:00 Outpatient MCKEON-SAND OVAL, AYO [facility] [id number] [facility] 2022-01-03 00:00:00 2022-01-03 00:00:00 Outpatient MCKEON-SAND OVAL, AYO [facility] [id number] [facility] 2022-01-03 00:00:00 2022-01-03 00:00:00 Outpatient MCKEON-SAND OVAL, AYO [facility] [id number] [facility] 2021-11-16 14:00:00 2021-11-17 11:52:00 Outpatient NAV BLEDSOE [id number] 2021-09-30 00:00:00 2021-09-30 00:00:00 (TEL) STLMLC STLMLC [id number] [facility] 2021-09-30 00:00:00 2021-09-30 00:00:00 OL DIG E/M SVC 11-20 MIN STLMLC STLMLC [id number] [facility] 2021-09-30 00:00:00 2021-09-30 00:00:00 (TEL) STLMLC STLMLC [id number] [facility] 2021-09-14 00:00:00 2021-09-14 00:00:00 (TEL) STLMLC STLMLC [id number] [facility] 2021-08-31 00:00:00 2021-08-31 00:00:00 Outpatient MCKEON-SAND OVAL, AYO [facility] [id number] [facility] 2021-08-12 00:00:00 2021-08-12 00:00:00 (TEL) STLMLC STLMLC [id number] [facility] 2021-04-20 00:00:00 2021-04-20 00:00:00 (TEL) STLMLC STLMLC [id number] [facility] 2021-03-31 00:00:00 2021-03-31 00:00:00 OFFICE VISIT ESTAB PT LEVEL 4 STLMLC STLMLC [id number] [facility] 2021-03-31 00:00:00 2021-03-31 00:00:00 (TEL) STLMLC STLMLC [id number] [facility] 2021-03-25 00:00:00 2021-03-25 00:00:00 (TEL) STLMLC STLMLC [id number] [facility] 2021-03-01 00:00:00 2021-03-01 00:00:00 Outpatient MCKEON-SAND OVAL, AYO [facility] [id number] [facility] 2021-01-19 00:00:00 2021-01-19 00:00:00 Outpatient MCKEON-SAND OVAL, AYO [facility] [id number] [facility] 2021-01-12 00:00:00 2021-01-12 00:00:00 Outpatient MCKEON-SAND OVAL, AYO [facility] [id number] [facility] 2020-12-30 00:00:00 2020-12-30 00:00:00 (TEL) STLMLC STLMLC [id number] [facility] 2020-11-17 00:00:00 2020-11-17 00:00:00 Outpatient DARYA CHIN [facility] [id number] [facility] 2020-06-04 09:47:00 2020-06-04 23:59:00 Outpatient ADALI PRADHAN [facility] [id number] [facility] 2019-12-17 00:00:00 2019-12-17 00:00:00 Outpatient DARYA CHIN [facility] [id number] [facility] 2019-12-10 00:00:00 2019-12-10 00:00:00 Outpatient DARYA CHIN [facility] [id number] [facility] 2019-10-10 00:00:00 2019-10-10 00:00:00 Outpatient STLMLC STLMLC [id number] [facility] 2019-09-11 12:01:00 2019-09-11 12:01:[address] [facility] [id number] [facility] 2019-07-04 00:00:00 2019-07-04 00:00:00 Outpatient MCKEON-SAND OVAL, AYO [facility] [id number] [facility] 2019-06-04 00:00:00 2019-06-04 00:00:00 Outpatient DARYA CHIN [facility] [id number] [facility] 2019-06-03 00:00:00 2019-06-03 00:00:00 Outpatient MCKEON-SAND OVAL, AYO [facility] [id number] [facility] 2019-04-03 14:00:00 2019-04-03 14:00:00 [facility] [id number] [facility] 2018-12-04 13:00:00 2018-12-04 13:00:[address] [facility] [id number] [facility] 2018-06-13 15:40:00 2018-06-13 15:40:[address] [facility] [id number] [facility] 2018-06-11 11:45:00 2018-06-11 11:45:00 Outpatient [facility] [id number] [facility] 2018-06-07 14:30:00 2018-06-07 14:30:00 [facility] [id number] [facility] 2018-04-10 11:00:00 2018-04-10 11:00:00 [facility] [id number] [facility] 2018-03-08 15:45:00 2018-03-08 15:45:00 [facility] [id number] [facility] Results Test Description Test Time Test Comments Results Result [facility] Flu by Tere[facility]
--- NOTE | 2024-11-18 11:50 | EDPHYS ---
Physician Documentation [facility] Name: Rajiv Nath Age: 79 yrs Sex: Male : 1945 Arrival Date: 11/18/2024 Time: 11:34 Bed 10 Private MD: ED Physician Ant Blanchard HPI: 11/18 11:51 This 79 yrs old Male presents to ER via Ambulatory with complaints of Suture Removal. sb4 11:51 The patient has sutures on the left kimbrough. sb4 11:52 Previous treatment: The patient was initially treated 7 day(s) ago, the care was sb4 rendered at [facility], Treatment type: The patient's original treatment included sutures, Outpatient prescription(s): The patient was given prescription(s) for Keflex, Previous recheck: the patient has not been checked since the original treatment. Sutures/mattie progress: The patient has no c/o's. The wound is well-healing with no redness, swelling, discharge, or dehiscence reported. Historical: - Allergies: 11:42 No Known Allergies; dd2 - PMHx: 11:42 Glaucoma; Prostate Cancer; dd2 - PSHx: 11:42 urinary valve; dd2 - Immunization history:: Adult Immunizations up to date. - Infectious Disease History:: Denies. - Social history:: Smoking status: Patient denies any tobacco usage or history of. ROS: 11:52 Constitutional: Negative for fever, chills, and weight loss, sb4 11:52 Skin: Positive for laceration(s), of the left kimbrough, 11:52 All other systems are negative, Exam: 11:52 Constitutional: This is a well developed, well nourished patient who is awake, alert, sb4 and in no acute distress. Head/Face: Normocephalic, atraumatic. Eyes: Extra-ocular motions intact. Periorbital areas with no swelling, redness, or edema. ENT: Mucous membranes moist. Respiratory: No increased work of breathing, no retractions or nasal flaring. 11:52 Skin: Wound recheck: Suture laceration closure: the wound is healing well, the edges are well approximated, mild drainage, Vital Signs: 11:39 BP 159 / 72; Pulse 86; Resp 17; Temp 98.2; Pulse Ox 97% on R/A; Weight 117.93 kg; Pain dd2 0/10; 11:39 Pain Scale: Adult dd2 Procedures: 11:52 Suture/Staple removal: Removed 5 sutures, from left kimbrough, site appears well healed, sb4 dressed with gauze bandage, Neosporin, Patient tolerated well. MDM: 11:42 Medical Screening Exam initiated sb4 11:52 Data reviewed: vital signs, nurses notes, and as a result, I will discharge patient. sb4 Counseling: I had a detailed discussion with the patient and/or guardian regarding the historical points, exam findings, and any diagnostic results supporting the discharge/admit diagnosis, the presence of at least one elevated blood pressure reading (>120/80) during this emergency department visit, the need for outpatient follow up, for definitive care, to return to the emergency department if symptoms worsen or persist or if there are any questions or concerns that arise at home. 11/18 11:50 Order name: Wound dressing; Complete Time: 12:01 sb4 Administered Medications: No medications were administered Disposition: 16:17 I was immediately available on-site in the Emergency Department for consultation in the ms3 care of the patient. Disposition Summary: 11/18/24 11:50 Discharge Ordered Notes: Location: Home sb4 Problem: new sb4 Symptoms: have improved sb4 Condition: Stable sb4 Diagnosis - Encounter for removal of sutures sb4 Followup: sb4 - With: Private Physician - When: 1 week - Reason: Recheck today's complaints, Re-evaluation by your physician Discharge Instructions: - Discharge Summary Sheet sb4 - Suture Removal, Care After sb4 - Wound Care, Adult sb4 Forms: - Patient Portal Instructions sb4 - Leadership Thank You Letter sb4 Signatures: Ant Blanchard DO DO ms3 Brenda Gan PA-C PA-C sb4 SAVAGE CALDERA RN RN dd2 Corrections: (The following items were deleted from the chart) 11:52 11:51 The patient has sutures on the left kimbrough, sb4 sb4
--- NOTE | 2024-11-18 11:50 | ER ---
Nurse's Notes [facility] Name: Rajiv Nath Age: 79 yrs Sex: Male : 1945 Arrival Date: 11/18/2024 Time: 11:34 Bed 10 Private MD: Diagnosis: Encounter for removal of sutures Presentation: 11/18 11:39 Chief complaint: Patient states: HERE TO HAVE STITCHES REMOVED FROM LEG. Coronavirus dd2 screen: At this time, the client does not indicate any symptoms associated with coronavirus-19. Ebola Screen: No symptoms or risks identified at this time. Initial Sepsis Screen: Does the patient meet any 2 criteria? Yes Does the patient have a suspected source of infection? No. Patient's initial sepsis screen is negative. Risk Assessment: Do you want to hurt yourself or someone else? Patient reports no desire to harm self or others. Onset of symptoms was October 29, 2024. 11:39 Method Of Arrival: Ambulatory dd2 11:39 Acuity: MARIA A 5 dd2 Triage Assessment: 11:42 General: Appears in no apparent distress. Behavior is calm, cooperative, appropriate dd2 for age. Pain: Denies pain. Derm: Wound noted left kimbrough Other: [address] Reports HERE FOR SUTURE REMOVAL. Historical: - Allergies: 11:42 No Known Allergies; dd2 - PMHx: 11:42 Glaucoma; Prostate Cancer; dd2 - PSHx: 11:42 urinary valve; dd2 - Immunization history:: Adult Immunizations up to date. - Infectious Disease History:: Denies. - Social history:: Smoking status: Patient denies any tobacco usage or history of. Screenin:03 [facility] ED Fall Risk Assessment (Adult) History of falling in the last 3 months, ll1 including since admission Yes- single mechanical fall (1 pt) Confusion or Disorientation No (0 pts) Intoxicated or Sedated No (0 pts) Impaired Gait Yes (1 pt) Mobility Assist Device Used Yes (1 pt) Altered Elimination No (0 pt) Score/Fall Risk Level 3 or more points = High Risk Maintained a safe environment, Hourly rounding (assess needs \T\ fall precautionary measures) done. Abuse screen: Denies threats or abuse. Nutritional screening: No deficits noted. Tuberculosis screening: No symptoms or risk factors identified. Assessment: 12:03 Reassessment: No changes from previously documented assessment. Patient and/or family ll1 updated on plan of care and expected duration. Pain level reassessed. Patient is alert, oriented x 3, equal unlabored respirations, skin warm/dry/pink. Vital Signs: 11:39 BP 159 / 72; Pulse 86; Resp 17; Temp 98.2; Pulse Ox 97% on R/A; Weight 117.93 kg; Pain dd2 0/10; 11:39 Pain Scale: Adult dd2 ED Course: 11:37 Patient arrived in ED. al6 11:42 Brenda Gan PA-C is PHCP. sb4 11:42 Ant Blanchard DO is Attending Physician. sb4 11:42 Triage completed. dd2 11:42 Arm band placed on right wrist. dd2 11:42 Patient has correct armband on for positive identification. Provided Education on: ER ll1 procedures and process. 12:01 Nash Heart RN is Primary Nurse. ll1 12:02 Patient did not have IV access during this emergency room visit. Wound care: to s/p ll1 suture removal located on left leg was dressed with Kerlix, non adherent dressing, Patient tolerated well. 12:04 No provider procedures requiring assistance completed. ll1 Administered Medications: No medications were administered Medication: 12:04 VIS not applicable for this client. ll1 Outcome: 11:50 Discharge ordered by . sb4 12:04 Discharged to home via wheelchair, ll1 12:04 Condition: stable 12:04 Discharge instructions given to patient, Instructed on discharge instructions, follow up and referral plans. wound care, Demonstrated understanding of instructions, follow-up care, wound care, 12:04 Patient left the ED. ll1 Signatures: Nash Heart RN RN ll1 Brenda Gan PA-C PA-C sb4 SAVAGE CALDERA RN RN dd2 Sagrario Esparza al6
[2024-11-18 14:01] VITALS: BP 159/72; TEMP 98.2; O2SAT 97
== END 2024-11-18 12:04 | disposition home or self-care (01) ==
LOC: ER 11:34
DX: Z48.02 Encounter for removal of sutures (principal)

== ENCOUNTER 2024-12-18 17:52 | Emergency (ER) | payer OTHER, BC ==
--- OUTSIDE RECORDS SUMMARY | 2024-12-18 17:55 | XMS REPORT | Continuity of Care Document ---
Author Name Unknown Address [address] [facility] [address] [place] [address] [facility] [place] Address [address] [facility] [address] [place] [address] Care Team Providers Care Spanish Interpreter Name Role Phone Asked, No Pcp Primary Care Physician Unavailab Keven No Attending Clinician Unavailable Camden Faith Attending Clinician [phone] Unknown, Attending Attending Clinician Unavailab Ayo Zambrano MD Attending Clinic hebert Darya Chin MD Attending Clinician [phone] DELIA MONTEMAYOR Attending Clinician Unavailable GERMAINE JACKSON Attending Clinician Unavailab Germaine Chen Attending Clinician [phone] Unknown, Attending Attending Clinician Unavailab neal Doctor Unassigned, [place] Attending Clinician NAV Aleman Attending Clinician Unavailable ADALI PRADHAN Attending Clinician Unavail able AYO DANGELO Admitting Clinician Unav ailable NAV BLEDSOE Admitting Clinician Unavailable Payers Payer Name Policy Type Policy Number Effective Date Expirati on Date Source [facility] 6 [id number] 2010 00:00:00 [facility] MEDICARE JACY [id number] 2010 00:00:00 [facility] Problems Condition Name Condition Details Condition Category Status Onset Date Resolution Date Last Treatment Date Treating Clinician Comments Source Unspecifie d urinary incontinen ce Unspecifie d urinary incontinen ce Disease Active 04-08 00:00: 00 [facility] Urinary incontinen ce Urinary incontinen ce Disease Active 08-11 00:00: 00 [facility] Incontinen ce Incontinen ce Disease Active 05-26 00:00: 00 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, bronchus or lung Problem [facility] Chronic fatigue syndrome Chronic fatigue Problem [facility] [id number] Glaucoma of both eyes, unspecifie d glaucoma type Problem [facility] [id number] History of prostatect teresa Problem [facility] [id number] Body mass index (BMI) 33.0-33.9, adult Problem [facility] Secondary malignant neoplasm of lung Secondary malignant neoplasm of unspecifie d lung Problem [facility] [id number] Other obesity due to excess calories Problem [facility] Malignant tumor of prostate Malignant neoplasm of prostate Problem [facility] [id number] Chronic nasal congestion Problem [facility] [id number] Asymptomat ic hypertensi ve urgency Problem [facility] [id number] Allergic rhinitis, unspecifie d seasonalit y, unspecifie d trigger Problem [facility] [id number] Other chronic sinusitis Problem [facility] 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 Problem [facility] Allergies, Adverse Reactions, Alerts Allergy Name Allergy Type Status Severity Reaction(s) Onset Date Inactive Date Treating Clinician Comments Source Other Allergy Active Other (See Comments) 04-05 00:00: 00 EXTREME ANXIETY OVER PUTTING OXYGEN MASK ON = Claustrop hobia [facility] Other Propensi ty to adverse reaction s Active Other (See Comments) 04-05 00:00: 00 EXTREME ANXIETY OVER PUTTING OXYGEN MASK ON = Claustrop hobia [facility] PREDNISO NE DRUG INGREDI Active Other-Cmnt 12-04 00:00: 00 [facility] Predniso ne Propensi ty to adverse reaction s Active Other - See comments 12-04 00:00: 00 Other reaction( s): Eye Pressure [facility] Predniso ne Drug Allergy Active Other (See Comments) 12-04 00:00: 00 Other reaction( s): Eye Pressure [facility] Predniso ne Propensi ty to adverse reaction s to drug Active Other (See Comments) 12-04 00:00: 00 Other reaction( s): Eye Pressure [facility] NO KNOWN ALLERGIE S Drug Class Active [facility] Family History Family Member Diagnosis Comments Start Date Stop Date Sourc e Natural father Alzheimer's disease German Gerardo t Paternal grandfather Diabetes German Dailyist Social History Social Habit Start Date Stop Date Quantity Comments Source History of tobacco use Snuff User [facility] Alcoholic beverage intake 2024-10-14 00:00:00 2024-10-14 00:00:00 Current drinker of alcohol (finding) German Bejarano History of Social function 2024-10-14 00:00:00 2024-10-14 00:00:00 German Bejarano Exposure to SARS-CoV-2 (event) 2022-01-24 00:00:00 2022-02-03 10:54:00 Not sure [facility] Tobacco use and exposure 2022-01-03 00:00:00 2022-01-03 00:00:00 User of smokeless tobacco German [employer] Tobacco Comment 2022-01-03 00:00:00 2022-01-03 00:00:00 cigar = x1/month / smokeless tobacco x 48 years , quit 2009 German Bejarano Alcohol Comment 2016-04-28 00:00:00 2016-04-28 00:00:00 x1 / day German Bejarano Sex 2015-02-11 02:27:04 2015-02-11 02:27:04 Male (finding) German Bejarano Sex assigned at 1945 00:00:00 1945 00[birth year]00:00 M German Bejarano Smoking Status Start Date Stop Date Source Tobacco smoking consumption unknown [facility] Light tobacco smoker 2022-01-03 00:00:00 German Bejarano Never Smoker [facility] Medications Ordered Medication Name Filled Medication Name Start Date Stop Date Current Medication? Ordering Clinician Indication Dosage Frequency Signature (SIG) Comments Components Source amoxicillin -pot clavulanate 875-125 mg per tablet 11-12 00:00: 00 11-23 04:59 :00 Yes [id number] 1{tbl} Take 1 tablet by mouth in the morning and 1 tablet in the evening. Do all this for 10 days. [facility] cephALEXin 500 mg capsule 10-29 00:00: 00 Yes TAKE 1 CAPSULE BY MOUTH EVERY 8 HOURS FOR 10 DAYS [facility] cetirizine- pseudoepHED rine (ZyrTEC-D) 5-120 mg per 12 hr tablet 10-30 10:11: 52 Yes 1{tbl} Q.5D Take 1 tablet by mouth 2 (two) times a day as needed for allergies. [facility] diphenhydrA MINE (BENADRYL) 25 mg capsule 10-30 10:11: 52 Yes 25mg QD Take 1 capsule (25 mg total) by mouth nightly as needed for sleep. [facility] acetaminoph en (TYLENOL) 325 MG tablet 10-30 10:11: 52 Yes 325mg Q6H Take 1 tablet (325 mg total) by mouth every 6 (six) hours as needed for fever. [facility] denosumab (PROLIA) 60 mg/mL syringe syringe 10-30 10:11: 52 Yes 60mg Inject 1 mL (60 mg total) under the skin once. German Melo leuprolide (ELIGARD) 7.5 mg (1 month) syringe 10-30 10:11: 52 Yes Inject under the skin once. [facility] enzalutamid e (Xtandi) 40 mg tablet 10-30 10:11: 52 Yes QD Take by mouth daily. [facility] CALCIUM ORAL 10-30 10:11: 52 Yes 1000mg Q.5D Take 1,000 mg by mouth 2 (two) times a day. [facility] bicalutamid e (CASODEX) 50 mg chemo tablet 10-30 10:11: 52 Yes 1 tablet Orally Once a day for 30 day(s) [facility] triptorelin pamoate (Trelstar) 11.25 mg suspension for reconstitut ion 10-30 10:11: 52 Yes Q30D every 30 (thirty) days. [facility] timolo/brim on/dorzo/la tanop/PF (timoL-brim on-dorzo-la tanop,PF,) 0.5 %-0.15 %- 2 %-0.005 % drops 10-30 10:11: 52 Yes 1[drp] Q.5D Apply 1 drop to eye 2 (two) times a day. [facility] multivitami n tablet 10-30 10:11: 52 Yes 1{tbl} QD Take 1 tablet by mouth daily. [facility] aspirin 325 MG tablet 10-30 10:11: 52 Yes 325mg QD Take 1 tablet (325 mg total) by mouth daily. [facility] vibegron (Gemtesa) 75 mg tablet 2022-03 00:00: 00 Yes 75mg QD Take 75 mg by mouth daily. [facility] ASCORBATE CALCIUM, VITAMIN C, ORAL 2021-03 10:58: 42 Yes 500mg Take 500 mg by mouth. [facility] bicalutamid e 50 mg tablet 2021-03 10:58: 42 Yes 1 tablet Orally Once a day for 30 day(s) [facility] Triptorelin Pamoate (TRELSTAR) 11.25 mg SusR 2021-03 10:58: 42 Yes Trelstar [facility] azithromyci n 250 mg tablet 2021-03 00:00: 00 Yes [id number] 250mg Take 1 tablet by mouth in the morning. [facility] benzonatate 200 mg capsule 2021-03 00:00: 00 02-14 05:59 :00 No [id number] 200mg Take 1 capsule by mouth 3 (three) times daily as needed for Cough for up to 10 days. [facility] albuterol 90 mcg/actuati on inhaler 2021-03 00:00: 00 02-14 05:59 :00 No [id number] 2{puff} Inhale 2 Puffs every 6 (six) hours as needed for Wheezing or Shortness of Breath for up to 10 days. [facility] bicalutamid e 50 mg tablet 2021-03 0 00:00: 00 Yes 50mg Take 50 mg by mouth every morning [facility] Azithromyci n 250 MG Azithromyci n 250 MG 09-30 00:00: 00 10-05 00:00 :00 No QD Azithromyc in 250 MG Ocuvite Adult Formula Ocuvite Adult Formula Yes Keven Montemayor as directed [facility] Zyrtec-D Allergy & Congestion Zyrtec-D Allergy & Congestion Yes Keven Montemayor 1 tablet as needed [facility] Vitamin C Vitamin C Yes Keven Montemayor as directed [facility] Bicalutamid e Bicalutamid e Yes Keven Montemayor 1 tablet [facility] Timolol Hemihydrate Timolol Hemihydrate Yes Keven Montemayor 1 drop into affected eye [facility] Lutein Lutein Yes Keven Montemayor 1 capsule with a meal [facility] Emergen-C Immune Emergen-C Immune Yes Keven Montemayor as directed [facility] Simbrinza Simbrinza Yes Keven Montemayor 1 drop [facility] Trelstar Lopezlstar No Vitamin C 500 MG Vitamin C [...] Filled Immunization Name Date Status Comments Source [facility] 2018-12-04 13:26:00 Completed [facility] 2018-12-04 13:26:00 Completed [facility] 2018-12-04 13:26:00 Completed [facility] 2018-12-04 00:00:00 Completed [facility] MODERNA COVID-19 MRNA VACCINATION Unknown Completed [facility] MODERNA COVID-19 MRNA VACCINATION Unknown Completed [facility] MODERNA COVID-19 MRNA VACCINATION Unknown Completed [facility] FLUZONE TRIVALENT Unknown Completed [facility] Vital Signs Vital Name Observation Time Observation Value Comments S ource Systolic blood pressure 2024-11-12 23:05:00 149 mm[Hg] [facility] Diastolic blood pressure 2024-11-12 23:05:00 71 mm[Hg] [facility] Heart rate 2024-11-12 23:05:00 87 /min [facility] Body temperature 2024-11-12 23:05:00 36.72 Delisa [facility] Respiratory rate 2024-11-12 23:05:00 15 /min [facility] Body height 2024-11-12 23:05:00 180.3 cm [facility] Body weight 2024-11-12 23:05:00 117.935 kg [facility] BMI 2024-11-12 23:05:00 36.26 kg/m2 [facility] Oxygen saturation in Arterial blood by Pulse oximetry 2024-11-12 23:05:00 96 /min [facility] Systolic blood pressure 2022-02-03 16:56:00 142 mm[Hg] [facility] Diastolic blood pressure 2022-02-03 16:56:00 62 mm[Hg] [facility] Body height 2022-02-03 16:56:00 190.5 cm [facility] Heart rate 2022-02-03 16:55:00 71 /[facility] temperature 2022-02-03 16:55:00 36.72 Delisa [facility] Respiratory rate 2022-02-03 16:55:00 18 /min [facility] Body weight 2022-02-03 16:55:00 122.244 kg [facility] BMI 2022-02-03 16:55:00 33.69 kg/m2 [facility] Oxygen saturation in Arterial blood by Pulse oximetry 2022-02-03 16:55:00 98 /min [facility] height 2021-09-30 13:20:00 74 [in_i] [facility] weight 2021-09-30 13:20:00 265.1 [lb_av] [facility] bmi 2021-09-30 13:20:00 34.03 kg/m2 [facility] height 2021-03-31 10:00:00 74 [in_i] [facility]mo n [facility] weight 2021-03-31 10:00:00 265.1 [lb_av] [facility] temperature 2021-03-31 10:00:00 97.5 [degF] Com mon [facility] bmi 2021-03-31 10:00:00 34.03 kg/m2 [facility] oximetry 2021-03-31 10:00:00 96 % [facility] respiratory rate 2021-03-31 10:00:00 17 /min [facility] blood pressure systolic 2021-03-31 10:00:00 135 mm[Hg] [facility] blood pressure diastolic 2021-03-31 10:00:00 71 mm[Hg] [facility] Procedures Procedure Date / Time Performed Performing Clinicia n Source XR CHEST 2 VW 2022-02-03 17:45[facility]OV-2 ANTIGEN (BINAX NOW) 2022-02-03 17:09:00 Faina Singleton [facility] ASSIGNMENT OF BENEFITS 2022-02-03 16:37:11 Docto r Unassigned, [place] [facility] Encounters Start Date/Time End Date/Time Encounter Type Admission Type Attending Clinicians Care Facility Care Department Encounter ID Source 2023-11-15 14:06:00 Outpatient Montemayor, [facility] [id number] [facility] 2022-02-02 15:25:00 Outpatient Montemayor, [facility] [id number] [facility] 2021-09-30 10:18:00 Outpatient Montemayor, [facility] [id number] [facility] 2021-04-21 14:29:45 Outpatient Montemayor, [facility] [id number] [facility] 2021-04-21 13:10:07 Outpatient Montemayor, [facility] [id number] [facility] 2021-04-21 11:27:02 Outpatient Montemayor, [facility] [id number] [facility] 2021-04-21 11:17:26 Outpatient Montemayor, [facility] [id number] [facility] 2021-04-21 10:58:47 Outpatient Montemayor, [facility] [id number] [facility] 2021-04-21 10:57:41 Outpatient Montemayor, [facility] [id number] [facility] 2024-11-12 18:00:00 2024-11-12 18:08:06 Urgent Care R Camden Valladares Unknown, Attending [facility] [id number] [facility] 2024-10-14 00:00:00 2024-10-14 00:00:00 Outpatient MCKEON-SAND OVAL, AYO [facility] [id number] [facility] 2024-04-15 00:00:00 2024-04-15 00:00:00 Outpatient MCKEON-SAND OVAL, AYO [facility] [id number] [facility] 2024-02-13 00:00:00 2024-02-13 00:00:00 Outpatient GIUSEPPE, DARYA [facility] [id number] [facility] 2023-10-24 00:00:00 2023-10-24 00:00:00 Outpatient MCKEON-SAND OVAL, AYO [facility] [id number] [facility] 2023-07-25 00:00:00 2023-07-25 00:00:00 Outpatient MCKEON-SAND OVAL, AYO [facility] [id number] [facility] 2023-04-26 00:00:00 2023-04-26 00:00:00 Outpatient MCKEON-SAND OVAL, AYO [facility] [id number] [facility] 2023-02-28 00:00:00 2023-02-28 00:00:00 Outpatient GIUSEPPE, DARYA [facility] [id number] [facility] 2023-02-13 00:00:00 2023-02-13 00:00:00 Outpatient MCKEON-SAND OVAL, AYO [facility] [id number] [facility] 2023-01-11 00:00:00 2023-01-11 00:00:00 Outpatient MCKEON-SAND OVAL, AYO [facility] [id number] [facility] 2022-08-29 00:00:00 2022-08-29 00:00:00 Outpatient GIUSEPPE, DARYA [facility] [id number] [facility] 2022-07-19 00:00:00 2022-07-19 00:00:00 Outpatient GIUSEPPE, DARYA [facility] [id number] [facility] 2022-07-04 00:00:00 2022-07-04 00:00:00 Outpatient MCKEON-SAND OVAL, AYO [facility] [id number] [facility] 2022-05-24 00:00:00 2022-05-24 00:00:00 Outpatient MCKEON-SAND OVAL, AYO [facility] [id number] [facility] 2022-04-27 00:00:00 2022-04-27 00:00:00 Outpatient MCKEON-SAND OVAL, AYO [facility] [id number] [facility] 2022-04-11 00:00:00 2022-04-11 00:00:00 Outpatient MCKEON-SAND OVAL, AYO [facility] [id number] [facility] 2022-04-09 00:00:00 2022-04-09 00:00:00 Emergency MONTEMAYOR, DELIA [facility] [id number] [facility] 2022-04-08 00:00:00 2022-04-09 00:00:00 Outpatient MCKEON-SAND OVAL, AYO [facility] [id number] [facility] 2022-04-05 00:00:00 2022-04-05 00:00:00 Outpatient MCKEON-SAND OVAL, AYO [facility] [id number] [facility] 2022-04-05 00:00:00 2022-04-05 00:00:00 Outpatient MCKEON-SAND OVAL, AYO [facility] [id number] [facility] 2022-02-14 00:00:00 2022-02-14 00:00:00 Outpatient GIUSEPPE, DARYA [facility] [id number] [facility] 2022-02-11 00:00:00 2022-02-11 00:00:00 Outpatient MCKEON-SAND OVAL, AYO [facility] [id number] [facility] 2022-02-03 11:11:43 2022-02-03 23:59:00 Outpatient GERMAINE [facility] [id number] [facility] 2022-02-03 11:11:43 2022-02-03 23:59:00 Hospital Encounter Germaine Jackson [facility] [id number] [facility] 2022-02-03 10:40:00 2022-02-03 11:23:22 Urgent Care Germaine Jackson Unknown, Attending [facility] [id number] [id number] [facility] 2022-02-03 00:00:00 2022-02-03 00:00:00 Orders Only Doctor Unassigned, [place] [facility] [id number] [facility] 2022-02-02 00:00:00 2022-02-02 00:00:00 (TEL) [facility] [id number] [facility] 2022-01-03 00:00:00 2022-01-03 00:00:00 Outpatient MCKEON-SAND OVAL, AYO [facility] [id number] [facility] 2022-01-03 00:00:00 2022-01-03 00:00:00 Outpatient MCKEON-SAND OVAL, AYO [facility] [id number] [facility] 2022-01-03 00:00:00 2022-01-03 00:00:00 Outpatient MCKEON-SAND OVAL, AYO [facility] [id number] [facility] 2021-11-16 14:00:00 2021-11-17 11:52:00 Outpatient NAV BLEDSOE [address] 2021-09-30 00:00:2021-09-30 00:00:00 (TEL) STLMLC [facility] [id number] [facility] 2021-09-30 00:00:00 2021-09-30 00:00:00 OL HALINA E/M SVC 11-20 MIN STLMLC STLMLC [id number] [facility] 2021-09-30 00:00:00 2021-09-30 00:00:00 (TEL) STLMLC STLMLC [id number] [facility] 2021-09-14 00:00:00 2021-09-14 00:00:00 (TEL) STLMLC STLMLC [id number] [facility] 2021-08-31 00:00:00 2021-08-31 00:00:00 Outpatient MCKEON-SAND OVAL, AYO [facility] [id number] [facility] 2021-08-12 00:00:00 2021-08-12 00:00:00 (TEL) STLMLC STLMLC [id number] [facility] 2021-04-20 00:00:00 2021-04-20 00:00:00 (TEL) STLMLC STLMLC [id number] [facility] 2021-03-31 00:00:00 2021-03-31 00:00:00 OFFICE VISIT ESTAB PT LEVEL 4 STLMLC STLMLC [id number] [facility] 2021-03-31 00:00:00 2021-03-31 00:00:00 (TEL) STLMLC STLMLC [id number] [facility] 2021-03-25 00:00:00 2021-03-25 00:00:00 (TEL) STLMLC STLMLC [id number] [facility] 2021-03-01 00:00:00 2021-03-01 00:00:00 Outpatient MCKEON-SAND OVAL, AYO [facility] [id number] [facility] 2021-01-19 00:00:00 2021-01-19 00:00:00 Outpatient MCKEON-SAND OVAL, AYO [facility] [id number] [facility] 2021-01-12 00:00:00 2021-01-12 00:00:00 Outpatient MIKE-AYO ESPITIA [facility] [id number] [facility] 2020-12-30 00:00:00 2020-12-30 00:00:00 (TEL) STLMLC ST[facility]MLC [id number] [facility] 2020-11-17 00:00:00 2020-11-17 00:00:00 Outpatient DARYA CHIN [facility] [id number] [facility] 2020-06-04 09:47:00 2020-06-04 23:59:00 Outpatient ADALI PRADHAN [id number] [facility] 2019-12-17 00:00:00 2019-12-17 00:00:00 Outpatient DARYA CHIN [facility] [id number] [facility] 2019-12-10 00:00:00 2019-12-10 00:00:00 Outpatient DARYA CHIN [facility] [id number] [facility] 2019-10-10 00:00:00 2019-10-10 00:00:00 Outpatient STLMLC STLC [id number] [facility] 2019-09-11 12:01:00 2019-09-11 12:01:00 Outpatient [facility] [id number] [facility] 2019-07-04 00:00:00 2019-07-04 00:00:00 Outpatient MIKE-AYO ESPITIA [facility] [id number] [facility] 2019-06-04 00:00:00 2019-06-04 00:00:00 Outpatient DARYA CHIN [facility] [id number] [facility] 2019-06-03 00:00:00 2019-06-03 00:00:00 Outpatient MCKEON-SAND AYO JARVIS [facility] [id number] [facility] 2019-04-03 14:00:00 2019-04-03 14:00:00 [facility] [id number] [facility] 2018-12-04 13:00:00 2018-12-04 13:00:[address] [facility] [id number] [facility] 2018-06-13 15:40:00 2018-06-13 15:40:[address] [facility] [address] [facility] [id number] [facility] 2018-06-11 11:45:00 2018-06-11 11:45:[address] [facility] [address] [facility] [id number] [facility] 2018-06-07 14:30:00 2018-06-07 14:30:00 [facility] [address] [facility] [id number] [facility] 2018-04-10 11:00:00 2018-04-10 11:00:[address] [facility] [address] [facility] [id number] [facility] 2018-03-08 15:45:00 2018-03-08 15:45:[address] [facility] [facility] [address] [facility] [id number] [facility] Results Test Description Test Time Test Comments Results Result [facility] + Flu by Michael, COVID 19 Antigen + Flu by Tereza
[2024-12-18 18:26] LABS: Absolute Lymphocytes (CBC) 1.0 K/uL (0.7-4.9); Hematocrit 43.0 % (39.6-49.0); Hemoglobin 14.4 g/dL (13.6-17.9); MCH 29.8 pg (27.0-35.0); MCHC 33.4 g/dL (32.0-36.0); MCV 89.2 fL (80-100); MPV 9.8 fL (7.6-11.3); Nucleated RBC Absolute Count 0.0 (0-0); Nucleated Red Blood Cells % 0.1 % (0-0); RBC Red Blood Cell Count 4.82 M/uL (4.33-5.43); White Blood Count 5.00 thou/uL (4.3-10.9)
--- NOTE | 2024-12-18 18:32 | RAD REPORT ---
EXAM: CT Ct Stroke Brain Wo Cont HISTORY: STROKE ALERT COMPARISON: None TECHNIQUE: Multiple contiguous axial images were obtained for a CT of the brain without contrast. Sag ittal and coronal reformats were performed. One or more of the following dose reduction techniques were used: Automated exposure control, adjus tment of the mA and kV according to patient size, and iterative reconstruction. Unless otherwise specified, incidental findings do not require dedicated imaging follow-up. FINDINGS: No evidence of hydrocephalus, intracranial hemorrhage, or extra-axial fluid collection. Mild brain atrophy with mild periventricular and deep white matter chronic microvascular ischemic ch anges present. The calvarium is intact. The visualized paranasal sinuses and mastoid air cells are essentially clear . IMPRESSION: No evidence of acute intracranial abnormality. THIS REPORT CONTAINS FINDINGS THAT MAY BE CRITICAL TO PATIENT CARE. The findings were verbally commun icated via telephone to Phuc Stinson MD on 12/18/2024 6:28 PM.
[2024-12-18 18:34] LABS: PT Prothrombin Time 13.0 SECONDS (10-13.0); Protime INR 1.16
--- NOTE | 2024-12-18 18:40 | RAD REPORT ---
EXAMINATION: CTA HEAD CLINICAL INDICATION: Male, 79 years old. TIA TECHNIQUE: Axial CT images were obtained through the head after intravenous contrast utilizing angiog raphic protocol with 3D post-processing (maximum intensity projection images, volume rendered images and/or shaded surface rendered images). One or more of the following dose reduction technique s were used: Automated exposure control, adjustment of the mA and/or kV according to patient size, and/or iterative reconstruction. Unless otherwise specified, incidental findings do not require dedic ated imaging follow-up. COMPARISON: No prior exam. FINDINGS: ICA: The petrous, cavernous, and supraclinoid segments of the bilateral internal carotid arteries are normal. KAMRAN: Anterior cerebral arteries are normal bilaterally. The anterior communicating artery is patent. MCA: Middle cerebral arteries are normal bilaterally. B[employer]VEY[employer] LINE: Multifocal narrowing throughout the right BAK[employer] CONVEYOR LINE, up to severe along the distal right P1 segment. I nferior division of the right [employer]YOR LINE is diminutive, supplied by a somewhat tortuous right posterior communicating artery that also exhibits multifocal narrowing. Focal uptake to moderate narrowing at the junction of the left P1 and P2 segments. Vertebrobasilar: The vertebral arteries are patent. The basilar artery is normal in appearance. 3D images confirm these findings. IMPRESSION: No large vessel occlusion. Multifocal narrowing along the right BAK[employer] WORKER CONVEYOR LINE. Diminutive inferior division, supplied through somewhat tor tuous and narrowed right posterior communicating artery. The findings could be chronic. No hemodynamically significant stenosis along the anterior circulation.
[2024-12-18] MEDS ORDERED: TENECTEPLASE 50 MG/10 ML VIAL IV ONE (18:41)
--- NOTE | 2024-12-18 18:42 | RAD REPORT ---
EXAMINATION: CT Neck Angio CLINICAL INDICATION: Male, 79 years old. [facility] MAIN PAIN Bed Name: 21 TECHNIQUE: Axial CT images were obtained from the aortic arch to the skull base after intravenous con trast utilizing angiographic protocol. Multiplanar reformats, as well as 3D post-processing (maximum intensity projection images, volume rendered images and/or shaded surface rendered images) w ere generated and reviewed. One or more of the following dose reduction techniques were used: Automated exposure control, adjustment of the mA and/or kV according to patient size, and/or iterativ e reconstruction. Unless otherwise specified, incidental findings do not require dedicated imaging follow-up. COMPARISON: No prior exam. FINDINGS: AORTA: The imaged aortic arch is normal. Normal three-vessel configuration of the arch. CCA: No artifact The common carotid arteries are patent and normal in caliber. ICA/ECA: Bilateral internal and external carotid arteries are patent. There is no significant interna l carotid artery stenosis. VERTEBRAL: The cervical vertebral arteries are patent to the skull base. Vertebral arteries are codom inant. SOFT TISSUE: No significant neck soft tissue abnormalities. The visualized lung apices are clear. 3D images confirm these findings. IMPRESSION: No significant flow abnormality of the neck vessels is identified. NASCET criteria used to quantify ICA stenosis, with the following grading scheme: Mild 0-49% stenosis Moderate 50-69% stenosis Severe 70-99% stenosis Reference: [place] Symptomatic Carotid Endarterectomy Trial Collaborators; Jade DOE, [place] ZARAGOZA, Herlinda RB, et al. Beneficial effect of carotid endarterectomy in symptomatic patients with high-grade carotid stenosis. N Engl J Med. 1990Nov 08;325(7):445-53.
[2024-12-18 18:47] LABS: ALT/SGPT 15.0 U/L (16-61); AST/SGOT 13.0 U/L (15-37); Albumin 3.5 g/dL (3.4-5.0); Albumin/Globulin Ratio 0.9 (1.1-1.8); Alkaline Phosphatase 50.0 U/L (45-117); Anion Gap 7.9 mEq/L (5.0-15.0); BUN Blood Urea Nitrogen 14.0 mg/dL (7-18); Bilirubin Indirect, Calculated 0.5 mg/dL (0.2-0.8); Globulin 3.8 g/dL (2.3-3.5); Glucose Level 105.0 mg/dL (74-106); Magnesium 2.3 mg/dL (1.6-2.4); NT PRO-BNP 449.0 pg/mL (<450); Potassium 3.9 mEq/L (3.5-5.1); Troponin High Sensitivity 13.6 pg/mL (<58.9)
--- NOTE | 2024-12-18 19:24 | RAD REPORT ---
EXAMINATION: ONE VIEW CHEST XR CLINICAL INDICATION: Male, 79 years old.,CHEST PAIN TECHNIQUE: Frontal chest projection is submitted. Examination is limited by patient positioning and t echnique. COMPARISON: 02/21/2013 FINDINGS: The lungs are well inflated. Elevation of the right hemidiaphragm again seen. Bilateral perihilar str eaky opacities more pronounced on the right, could reflect vascular prominence or perihilar scarring or atelectasis. No pneumothorax or sizable effusion. The heart is normal in size. Mediastin al contours are unremarkable. IMPRESSION: Bilateral perihilar streaky opacities as above.
[2024-12-18] MEDS ORDERED: NA CHLORIDE 0.9% 1,000 ML ONE (19:37)
[2024-12-18] MEDS ORDERED: FOLIC ACID 5 MG/ML VIAL ONE (19:37)
--- NOTE | 2024-12-18 19:42 | EDPHYS ---
Physician Documentation [facility] Name: Rajiv Nath Age: 79 yrs Sex: Male : 1945 Arrival Date: 12/18/2024 Time: 17:52 Bed 20 Private MD: ED Physician Phuc Stinson HPI: 12/18 18:07 This 79 yrs old Male presents to ER via Unassigned with complaints of CVA , lei SPEECH AT 538PM. 18:07 The patient's problem is reported as dysphasia, slurred speech, expressive aphasia. lei Onset: The symptoms/episode began/occurred at 17:38. Duration: This was a single incident, The episode is continuous. Context: the episode(s) was witnessed, by family, daughter. The symptoms are alleviated by nothing. The symptoms are aggravated by nothing. Associated signs and symptoms: Pertinent positives: SPEECH ONLY , EXPRESS. Severity of symptoms: At their worst the symptoms were mild moderate in the emergency department the symptoms have improved mildly. Patient's baseline: Neuro: alert and fully oriented. 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 - Social history:: Smoking status: Patient denies any tobacco usage or history of. - Infectious Disease History:: Denies. - Family history:: not pertinent. ROS: 18:07 Constitutional: Negative for fever, chills, and weight loss, Eyes: Negative for injury, lei pain, redness, and discharge, ENT: Negative for injury, pain, and discharge, Neck: Negative for injury, pain, and swelling, Cardiovascular: Negative for chest pain, palpitations, and edema, Respiratory: Negative for shortness of breath, cough, wheezing, and pleuritic chest pain, Abdomen/GI: Negative for abdominal pain, nausea, vomiting, diarrhea, and constipation, Back: Negative for injury and pain, : Negative for injury, bleeding, discharge, and swelling, MS/Extremity: Negative for injury and deformity, Skin: Negative for injury, rash, and discoloration, Psych: Negative for depression, anxiety, suicide ideation, homicidal ideation, and hallucinations, Allergy/Immunology: Negative for hives, rash, and allergies, Endocrine: Negative for neck swelling, polydipsia, polyuria, polyphagia, and marked weight changes, Hematologic/Lymphatic: Negative for swollen nodes, abnormal bleeding, and unusual bruising, 18:07 Neuro: Positive for speech changes, visual changes, Exam: 18:07 Constitutional: This is a well developed, well nourished patient who is awake, alert, lei and in no acute distress. Head/Face: Normocephalic, atraumatic. Eyes: Pupils equal round and reactive to light, extra-ocular motions intact. Lids and lashes normal. Conjunctiva and sclera are non-icteric and not injected. Cornea within normal limits. Periorbital areas with no swelling, redness, or edema. ENT: Nares patent. No nasal discharge, no septal abnormalities noted. Tympanic membranes are normal and external auditory canals are clear. Oropharynx with no redness, swelling, or masses, exudates, or evidence of obstruction, uvula midline. Mucous membranes moist. Neck: Trachea midline, no thyromegaly or masses palpated, and no cervical lymphadenopathy. Supple, full range of motion without nuchal rigidity, or vertebral point tenderness. No Meningismus. Chest/axilla: Normal chest wall appearance and motion. Nontender with no deformity. No lesions are appreciated. Cardiovascular: Regular rate and rhythm with a normal S1 and S2. No gallops, murmurs, or rubs. Normal PMI, no JVD. No pulse deficits. Respiratory: Lungs have equal breath sounds bilaterally, clear to auscultation and percussion. No rales, rhonchi or wheezes noted. No increased work of breathing, no retractions or nasal flaring. Abdomen/GI: Soft, non-tender, with normal bowel sounds. No distension or tympany. No guarding or rebound. No evidence of tenderness throughout. Back: No spinal tenderness. No costovertebral tenderness. Full range of motion. Male : Normal genitalia with no discharge or lesions. Skin: Warm, dry with normal turgor. Normal color with no rashes, no lesions, and no evidence of cellulitis. MS/ Extremity: Pulses equal, no cyanosis. Neurovascular intact. Full, normal range of motion., bilateral aka Psych: Awake, alert, with orientation to person, place and time. Behavior, mood, and affect are within normal limits. 18:07 Neuro: Orientation: is normal, appropriate for stated age, no acute changes, Mentation: is normal, appropriate for stated age, no acute changes, Memory: is normal, appropriate for stated age, no acute changes, Cranial nerves: grossly normal, is grossly normal based on the patient's age, no acute changes, Cerebellar function: is grossly normal, is grossly normal based on the patient's age, no acute changes, Motor: is normal, is grossly normal based on the patient's age, no acute changes, moves all fours, strength is normal, strength is 5/5 in all extremities, Sensation: is normal, no obvious gross deficits, appropriate no acute changes, Gait: not tested. Deep tendon reflexes are 2+ (normal) in the bilateral brachioradialis, bicep, tricep and patellar and Achilles tendons, seizure activity, is not displayed by the patient, 18:12 Radiologist reports: SEE REPORT [facility] 19:40 ECG was reviewed by the Attending Physician. [facility] Vital Signs: 18:34 BP 182 / 88; Pulse 88; Resp 17; Temp 98.2; Pulse Ox 96% on R/A; Weight 114.08 kg; dd2 19:30 BP 154 / 81; Pulse 80; Resp 18; Pulse Ox 99% on R/A; mf3 19:45 BP 160 / 77; Pulse 92; Pulse Ox 99% on R/A; mf3 20:00 BP 172 / 74; Pulse 95; Resp 18; Pulse Ox 98% on R/A; mf3 20:15 BP 180 / 94; Pulse 90; Resp 18; Pulse Ox 95% on R/A; mf3 20:30 BP 158 / 99; Pulse 87; Resp 17; Pulse Ox 99% on R/A; mf3 20:45 BP 152 / 84; Pulse 88; Resp 17; Pulse Ox 97% on R/A; mf3 21:00 BP 188 / 99; Pulse 95; Resp 18; Pulse Ox 99% on R/A; mf3 NIH Stroke Scale Scores: 18:07 NIHSS Score: 2 lei 18:50 NIHSS Score: 1 rg5 19:28 NIHSS Score: 0 mf3 19:30 NIHSS Score: 0 mf3 20:00 NIHSS Score: 0 mf3 20:15 NIHSS Score: 0 kb3 20:30 NIHSS Score: 0 mf3 20:45 NIHSS Score: 0 mf3 21:00 NIHSS Score: 0 mf3 Rumely Coma Score: 19:46 Eye Response: spontaneous(4). Motor Response: obeys commands(6). Verbal Response: mf3 oriented(5). Total: 15. MDM: 18:04 Medical Screening Exam initiated lei 18:13 TNKase (Tenecteplase) Screening: Indications: Definite evidence of stroke, ischemic, lei embolic, or hypertensive: Yes. Treatment will start within 4.5 hours onset of symptoms: Yes. No evidence of intracranial hemorrhage or CT of head and no evidence of peripheral hemorrhage or recent CVA: Yes. Consent for thrombolytic therapy: Yes. Contraindications: Other: NONE , DAUGHTER AND PATIENS ACCEPTS ALL RISK. Data reviewed: vital signs, nurses notes. Consideration of Admission/Observation Escalation of care including admission/observation considered. I considered the following discharge prescriptions or medication management in the emergency department Medications were administered in the Emergency Department. See MAR. Independent interpretation of the following test(s) in the Emergency Department EKG: See my EKG interpretation above. Test considered but Not performed: MRI: NO MRI. Historians other than the Patient: Daughter/Son: DAUGHTER WELL INFORMED. Care significantly affected by the following chronic conditions: Cancer. 12/18 18:06 Order name: Basic Metabolic Panel; Complete Time: 19:09 [facility] 12/18 18:06 Order name: CBC with Diff; Complete Time: 18:45 [facility] 12/18 18:06 Order name: LFT's; Complete Time: 19:09 [facility] 12/18 18:06 Order name: Magnesium; Complete Time: 19:09 [facility] 12/18 18:06 Order name: NT PRO-BNP; Complete Time: 19:09 [facility] 12/18 18:06 Order name: PT-INR; Complete Time: 18:45 [facility] 12/18 18:06 Order name: Troponin HS; Complete Time: 19:09 [facility] 12/18 19:54 Order name: Glucose, Ancillary Testing EDMS 12/18 18:06 Order name: XRAY Chest (1 view) [facility] 12/18 18:06 Order name: CT Stroke Brain w/o Contrast; Complete Time: 18:45 [facility] 12/18 18:06 Order name: CT Head Angio; Complete Time: 18:45 [facility] 12/18 18:06 Order name: CT Neck Angio; Complete Time: 18:45 [facility] 12/18 18:06 Order name: Cardiac monitoring; Complete Time: 18:39 [facility] 12/18 18:06 Order name: EKG - Nurse/Tech; Complete Time: 19:50 [facility] 12/18 18:06 Order name: IV Saline Lock; Complete Time: 19:50 [facility] 12/18 18:06 Order name: Labs collected and sent; Complete Time: 19:50 [facility] 12/18 18:06 Order name: O2 Per Protocol; Complete Time: 19:50 [facility] 12/18 18:06 Order name: O2 Sat Monitoring; Complete Time: 19:50 [facility] EC:40 Rate is 81 beats/min. Rhythm is regular. QRS [place] is Normal. ND interval is normal. QRS lei interval is normal. QT interval is normal. No Q waves. T waves are Normal. No ST changes noted. Clinical impression: Normal ECG and No evidence of ischemia. Interpreted by me. Reviewed by me. Administered Medications: 19:00 Drug: TNK FOR STROKE - Tenecteplase IV (Administer 10 ml NS flush BEFORE and rg5 AFTER tenecteplase) 25 mg IV at per protocol once; 0.25mg/kg, MAX DOSE 25 mg, IVP over 5 seconds {Co-Signature: cm10 (Rosetta Najera RN).} Route: IV; Rate: per protocol; Site: right antecubital; 19:01 Follow up: IV Status: Completed infusion; IV Intake: 5ml kb3 21:38 Follow up: Response: No adverse reaction [facility] 12/19 10:55 Follow up: TNK was administered at 1850 [facility] 12/18 19:50 Drug: foLIC Acid IVPB 1 mg IVPB once Route: IVPB; Site: right antecubital; 3 21:38 Follow up: Response: No adverse reaction 3 21:38 Follow up: IV Status: Completed infusion 3 19:50 Drug: NS 0.9% IV 1000 ml IV at 1000 ml once; to be given as a bolus over 60 minutes 3 Route: IV; Rate: 1000 ml; Site: right antecubital; 21:38 Follow up: Response: No adverse reaction 3 21:38 Follow up: IV Status: Completed infusion 3 Point of Care Testing: Blood Glucose: 19:15 Blood Glucose: 82 mg/dL; mf3 Ranges: Critical Glucose Levels:Adult <50 mg/dl or >400 mg/dl <40 mg/dl or >180 mg/dl Disposition Summary: 12/18/24 19:42 Transfer Ordered Notes: Transfer Location: [facility] lei Reason: Higher level of care lei Condition: Fair lei Problem: new lei Symptoms: have improved lei Accepting Physician: TO [facility](12/18/24 21:40) mf3 Diagnosis - Cerebral infarction, unspecified - ACUTE lei - Aphasia following cerebral infarction lei Forms: - Medication Reconciliation Form lei - SBAR form lei Critical care time excluding procedures: 18:12 Critical care time: Bedside Care: 35 minutes, Consultation: 15 minutes, Family lei Intervention: 15 minutes. Total time: 65 minutes NIH Stroke Scale - NIH Stroke Score Date: 12/18/2024 Time: 18:07 Total Score = 2 10. Dysarthria (speech clarity - read or repeat words) - 1(Mild to Moderate) 11. Extinction and Inattention (visual/tactile/auditory/spatial/personal) - 0(No abnormality) 1a. Level of Consciousness (LOC) - 0(Alert) 1b. Level of Consciousness (LOC) (Month \T\ Age) - 0(Both) 1c. LOC Commands (Open \T\ Closes Eyes/Pottery Machine Operator) - 0(Both) 2. Best Gaze (Lateral Gaze Paresis) - 0(Normal) 3. Visual Field Loss - 0(No visual loss) 4. Facial Palsy - 0(Normal) 5a. Left Arm: Motor (10-second hold) - 0(No drift) 5b. Right Arm: Motor (10-second hold) - 0(No drift) 6a. Left Leg: Motor (5-second hold - always test supine) - 0(No drift) 6b. Right Leg: Motor (5-second hold - always test supine) - 0(No drift) 7. Limb Ataxia (finger/nose \T\ heel/kimbrough - test with eyes open) - 0(Absent) 8. Sensory Loss (pinprick arms/legs/face) - 0(Normal) 9. Best Language: Aphasia (description/naming/reading) - 1(Mild to moderate aphasia) Initials: lei NIH Stroke Scale - NIH Stroke Score Date: 12/18/2024 Time: 18:50 Total Score = 1 10. Dysarthria (speech clarity - read or repeat words) - 0(Normal) 11. Extinction and Inattention (visual/tactile/auditory/spatial/personal) - 0(No abnormality) 1a. Level of Consciousness (LOC) - 0(Alert) 1b. Level of Consciousness (LOC) (Month \T\ Age) - 0(Both) 1c. LOC Commands (Open \T\ Closes Eyes/Pottery Machine Operator) - 0(Both) 2. Best Gaze (Lateral Gaze Paresis) - 0(Normal) 3. Visual Field Loss - 0(No visual loss) 4. Facial Palsy - 0(Normal) 5a. Left Arm: Motor (10-second hold) - 0(No drift) 5b. Right Arm: Motor (10-second hold) - 0(No drift) 6a. Left Leg: Motor (5-second hold - always test supine) - 0(No drift) 6b. Right Leg: Motor (5-second hold - always test supine) - 0(No drift) 7. Limb Ataxia (finger/nose \T\ heel/kimbrough - test with eyes open) - 0(Absent) 8. Sensory Loss (pinprick arms/legs/face) - 0(Normal) 9. Best Language: Aphasia (description/naming/reading) - 1(Mild to moderate aphasia) Initials: rg5 NIH Stroke Scale - NIH Stroke Score Date: 12/18/2024 Time: 19:28 Total Score = 0 10. Dysarthria (speech clarity - read or repeat words) - 0(Normal) 11. Extinction and Inattention (visual/tactile/auditory/spatial/personal) - 0(No abnormality) 1a. Level of Consciousness (LOC) - 0(Alert) 1b. Level of Consciousness (LOC) (Month \T\ Age) - 0(Both) 1c. LOC Commands (Open \T\ Closes Eyes/Pottery Machine Operator) - 0(Both) 2. Best Gaze (Lateral Gaze Paresis) - 0(Normal) 3. Visual Field Loss - 0(No visual loss) 4. Facial Palsy - 0(Normal) 5a. Left Arm: Motor (10-second hold) - 0(No drift) 5b. Right Arm: Motor (10-second hold) - 0(No drift) 6a. Left Leg: Motor (5-second hold - always test supine) - 0(No drift) 6b. Right Leg: Motor (5-second hold - always test supine) - 0(No drift) 7. Limb Ataxia (finger/nose \T\ heel/kimbrough - test with eyes open) - 0(Absent) 8. Sensory Loss (pinprick arms/legs/face) - 0(Normal) 9. Best Language: Aphasia (description/naming/reading) - 0(No aphasia) Initials: [facility] NIH Stroke Scale - NIH Stroke Score Date: 12/18/2024 Time: 19:30 Total Score = 0 10. Dysarthria (speech clarity - read or repeat words) - 0(Normal) 11. Extinction and Inattention (visual/tactile/auditory/spatial/personal) - 0(No abnormality) 1a. Level of Consciousness (LOC) - 0(Alert) 1b. Level of Consciousness (LOC) (Month \T\ Age) - 0(Both) 1c. LOC Commands (Open \T\ Closes Eyes/Pottery Machine Operator) - 0(Both) 2. Best Gaze (Lateral Gaze Paresis) - 0(Normal) 3. Visual Field Loss - 0(No visual loss) 4. Facial Palsy - 0(Normal) 5a. Left Arm: Motor (10-second hold) - 0(No drift) 5b. Right Arm: Motor (10-second hold) - 0(No drift) 6a. Left Leg: Motor (5-second hold - always test supine) - 0(No drift) 6b. Right Leg: Motor (5-second hold - always test supine) - 0(No drift) 7. Limb Ataxia (finger/nose \T\ heel/kimbrough - test with eyes open) - 0(Absent) 8. Sensory Loss (pinprick arms/legs/face) - 0(Normal) 9. Best Language: Aphasia (description/naming/reading) - 0(No aphasia) Initials: [facility] NIH Stroke Scale - NIH Stroke Score Date: 12/18/2024 Time: 20:00 Total Score = 0 10. Dysarthria (speech clarity - read or repeat words) - 0(Normal) 11. Extinction and Inattention (visual/tactile/auditory/spatial/personal) - 0(No abnormality) 1a. Level of Consciousness (LOC) - 0(Alert) 1b. Level of Consciousness (LOC) (Month \T\ Age) - 0(Both) 1c. LOC Commands (Open \T\ Closes Eyes/Pottery Machine Operator) - 0(Both) 2. Best Gaze (Lateral Gaze Paresis) - 0(Normal) 3. Visual Field Loss - 0(No visual loss) 4. Facial Palsy - 0(Normal) 5a. Left Arm: Motor (10-second hold) - 0(No drift) 5b. Right Arm: Motor (10-second hold) - 0(No drift) 6a. Left Leg: Motor (5-second hold - always test supine) - 0(No drift) 6b. Right Leg: Motor (5-second hold - always test supine) - 0(No drift) 7. Limb Ataxia (finger/nose \T\ heel/kimbrough - test with eyes open) - 0(Absent) 8. Sensory Loss (pinprick arms/legs/face) - 0(Normal) 9. Best Language: Aphasia (description/naming/reading) - 0(No aphasia) Initials: mf3 NIH Stroke Scale - NIH Stroke Score Date: 12/18/2024 Time: 20:15 Total Score = 0 10. Dysarthria (speech clarity - read or repeat words) - 0(Normal) 11. Extinction and Inattention (visual/tactile/auditory/spatial/personal) - 0(No abnormality) 1a. Level of Consciousness (LOC) - 0(Alert) 1b. Level of Consciousness (LOC) (Month \T\ Age) - 0(Both) 1c. LOC Commands (Open \T\ Closes Eyes/Pottery Machine Operator) - 0(Both) 2. Best Gaze (Lateral Gaze Paresis) - 0(Normal) 3. Visual Field Loss - 0(No visual loss) 4. Facial Palsy - 0(Normal) 5a. Left Arm: Motor (10-second hold) - 0(No drift) 5b. Right Arm: Motor (10-second hold) - 0(No drift) 6a. Left Leg: Motor (5-second hold - always test supine) - 0(No drift) 6b. Right Leg: Motor (5-second hold - always test supine) - 0(No drift) 7. Limb Ataxia (finger/nose \T\ heel/kimbrough - test with eyes open) - 0(Absent) 8. Sensory Loss (pinprick arms/legs/face) - 0(Normal) 9. Best Language: Aphasia (description/naming/reading) - 0(No aphasia) Initials: kb3 NIH Stroke Scale - NIH Stroke Score Date: 12/18/2024 Time: 20:30 Total Score = 0 10. Dysarthria (speech clarity - read or repeat words) - 0(Normal) 11. Extinction and Inattention (visual/tactile/auditory/spatial/personal) - 0(No abnormality) 1a. Level of Consciousness (LOC) - 0(Alert) 1b. Level of Consciousness (LOC) (Month \T\ Age) - 0(Both) 1c. LOC Commands (Open \T\ Closes Eyes/Pottery Machine Operator) - 0(Both) 2. Best Gaze (Lateral Gaze Paresis) - 0(Normal) 3. Visual Field Loss - 0(No visual loss) 4. Facial Palsy - 0(Normal) 5a. Left Arm: Motor (10-second hold) - 0(No drift) 5b. Right Arm: Motor (10-second hold) - 0(No drift) 6a. Left Leg: Motor (5-second hold - always test supine) - 0(No drift) 6b. Right Leg: Motor (5-second hold - always test supine) - 0(No drift) 7. Limb Ataxia (finger/nose \T\ heel/kimbrough - test with eyes open) - 0(Absent) 8. Sensory Loss (pinprick arms/legs/face) - 0(Normal) 9. Best Language: Aphasia (description/naming/reading) - 0(No aphasia) Initials: mf3 NIH Stroke Scale - NIH Stroke Score Date: 12/18/2024 Time: 20:45 Total Score = 0 10. Dysarthria (speech clarity - read or repeat words) - 0(Normal) 11. Extinction and Inattention (visual/tactile/auditory/spatial/personal) - 0(No abnormality) 1a. Level of Consciousness (LOC) - 0(Alert) 1b. Level of Consciousness (LOC) (Month \T\ Age) - 0(Both) 1c. LOC Commands (Open \T\ Closes Eyes/Pottery Machine Operator) - 0(Both) 2. Best Gaze (Lateral Gaze Paresis) - 0(Normal) 3. Visual Field Loss - 0(No visual loss) 4. Facial Palsy - 0(Normal) 5a. Left Arm: Motor (10-second hold) - 0(No drift) 5b. Right Arm: Motor (10-second hold) - 0(No drift) 6a. Left Leg: Motor (5-second hold - always test supine) - 0(No drift) 6b. Right Leg: Motor (5-second hold - always test supine) - 0(No drift) 7. Limb Ataxia (finger/nose \T\ heel/kimbrough - test with eyes open) - 0(Absent) 8. Sensory Loss (pinprick arms/legs/face) - 0(Normal) 9. Best Language: Aphasia (description/naming/reading) - 0(No aphasia) Initials: mf3 NIH Stroke Scale - NIH Stroke Score Date: 12/18/2024 Time: 21:00 Total Score = 0 10. Dysarthria (speech clarity - read or repeat words) - 0(Normal) 11. Extinction and Inattention (visual/tactile/auditory/spatial/personal) - 0(No abnormality) 1a. Level of Consciousness (LOC) - 0(Alert) 1b. Level of Consciousness (LOC) (Month \T\ Age) - 0(Both) 1c. LOC Commands (Open \T\ Closes Eyes/Pottery Machine Operator) - 0(Both) 2. Best Gaze (Lateral Gaze Paresis) - 0(Normal) 3. Visual Field Loss - 0(No visual loss) 4. Facial Palsy - 0(Normal) 5a. Left Arm: Motor (10-second hold) - 0(No drift) 5b. Right Arm: Motor (10-second hold) - 0(No drift) 6a. Left Leg: Motor (5-second hold - always test supine) - 0(No drift) 6b. Right Leg: Motor (5-second hold - always test supine) - 0(No drift) 7. Limb Ataxia (finger/nose \T\ heel/kimbrough - test with eyes open) - 0(Absent) 8. Sensory Loss (pinprick arms/legs/face) - 0(Normal) 9. Best Language: Aphasia (description/naming/reading) - 0(No aphasia) Initials: mf3 Signatures: Dispatcher [employer] Phuc Fam MD MD cha Gallardo, Rommel RN RN rg5 SAVAGE CALDERA RN RN dd2 Swapna Edmond RN RN mf3 Vanessa Hager RN kb3 Rosetta Najera RN cm10 Corrections: (The following items were deleted from the chart) 18:07 18:07 BASIC METABOLIC PANEL+C.LAB.BRZ ordered. EDMS EDMS 18:07 18:07 CBC+H.LAB.BRZ ordered. EDMS EDMS 18: 18:07 HEPATIC FUNCTION+C.LAB.BRZ ordered. EDMS EDMS 18: 18:07 MAGNESIUM+C.LAB.BRZ ordered. EDMS EDMS 18: 18:07 PROBNP+C.LAB.BRZ ordered. EDMS EDMS 18: 18:07 PROTIME (+INR)+COAG.LAB.BRZ ordered. EDMS EDMS 18: 18:07 Troponin High Sensitivity+C.LAB.BRZ ordered. EDMS EDMS 18: 18:07 UA Rfx Jean Carlos Cult if indicated+U.LAB.BRZ ordered. EDMS EDMS 18: 18:07 Chest Single View+RAD.RAD.BRZ ordered. EDMS EDMS 18: 18:07 CT-STROKE BRAIN W/O CONTRAST+CT.RAD.BRZ ordered. EDMS EDMS 18: 18:07 Head Angio+CT.RAD.BRZ ordered. EDMS EDMS 18: 18:07 Neck Angio+CT.RAD.BRZ ordered. EDMS EDMS 21:40 19:42 TO [facility] lei mf3
--- NOTE | 2024-12-18 19:42 | ER ---
Nurse's Notes [facility] Name: Rajiv Nath Age: 79 yrs Sex: Male : 1945 Arrival Date: 12/18/2024 Time: 17:52 Bed 20 Private MD: Diagnosis: Cerebral infarction, unspecified-ACUTE;Aphasia following cerebral infarction Presentation: 12/18 18:34 Chief complaint: Patient's son or daughter states: at 1718 pt became confused, unable dd2 to put his words together and could not call daughter, pt dialed grandson in another states and the grandson called his mother. pts daughter reports that at 1738 pt began putting words and sentences together that she could understand. Coronavirus screen: At this time, the client does not indicate any symptoms associated with coronavirus-19. Ebola Screen: No symptoms or risks identified at this time. An acute neurological deficit is present. The charge nurse has been notified. The patient has been moved to a treatment area. Initial Sepsis Screen: Does the patient meet any 2 criteria? No. Patient's initial sepsis screen is negative. Does the patient have a suspected source of infection? No. Patient's initial sepsis screen is negative. Risk Assessment: Do you want to hurt yourself or someone else? Patient reports no desire to harm self or others. Onset of symptoms was December 18, 2024 at 17:18. 18:34 Method Of Arrival: Ambulatory dd2 18:34 Acuity: MARIA A 2 dd2 Triage Assessment: 18:38 The onset of the patients symptoms was December 18, 2024 at 17:18. General: Appears dd2 uncomfortable, well nourished, Behavior is calm, cooperative, appropriate for age. Pain: Denies pain. Neuro: Level of Consciousness is awake, alert, obeys commands, Oriented to person, place, time, situation, Appropriate for age pt has some comprehension confusion. T Rail Turner are equal bilaterally Moves all extremities. Gait is steady, Speech with expressive aphasia noted, Facial symmetry appears normal, Pupils are PERRLA, Intact Reports confusion. 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 - Social history:: Smoking status: Patient denies any tobacco usage or history of. - Infectious Disease History:: Denies. - Family history:: not pertinent. Screenin:46 [facility] ED Fall Risk Assessment (Adult) History of falling in the last 3 months, mf3 including since admission No falls in past 3 months (0 pts) Confusion or Disorientation No (0 pts) Intoxicated or Sedated No (0 pts) Impaired Gait No (0 pts) Mobility Assist Device Used No (0 pt) Altered Elimination No (0 pt) Score/Fall Risk Level 0 - 2 = Low Risk Maintained a safe environment, Hourly rounding (assess needs \T\ fall precautionary measures) done, Used ambulatory aids as needed (educated on \T\ assisted with). Abuse screen: Denies threats or abuse. Denies injuries from another. Nutritional screening: No deficits noted. Tuberculosis screening: No symptoms or risk factors identified. Assessment: 18:48 General: Appears in no apparent distress. comfortable, Behavior is calm, cooperative, rg5 appropriate for age. Pain: Denies pain. Neuro: Level of Consciousness is awake, alert, obeys commands, Oriented to person, place, time, situation, T Rail Turner are equal bilaterally Moves all extremities. Full function Gait is steady, Speech is normal, Facial symmetry appears normal, Pupils are PERRLA, Intact. Cardiovascular: Patient's skin is warm and dry. Rhythm is sinus rhythm. Respiratory: Airway is patent Trachea midline Respiratory effort is even, unlabored, Respiratory pattern is regular. GI: Abdomen is round non-distended. : No signs and/or symptoms were reported regarding the genitourinary system. EENT: No signs and/or symptoms were reported regarding the EENT system. Derm: Skin is intact, Skin is dry, Skin is normal. Musculoskeletal: Circulation, motion, and sensation intact. Range of motion: intact in all extremities, Swelling present in right leg and left leg. 18:50 VAN Scoring: Arm Drift: Patients demonstrates NO arm weakness. Patient is VAN Negative. rg5 Visual Disturbance: No visual disturbance noted. Aphasia: Receptive aphasia noted. Provider notified of +VAN scoring. TNKase (Tenecteplase) Screening: Indications: Definite evidence of stroke, ischemic, embolic, or hypertensive: Yes. Treatment will start within 4.5 hours onset of symptoms: Yes. No evidence of intracranial hemorrhage or CT of head and no evidence of peripheral hemorrhage or recent CVA: Yes. Consent for thrombolytic therapy: Yes. 19:28 VAN Scoring: Arm Drift: Patients demonstrates NO arm weakness. Patient is VAN Negative. mf3 [place] Swallow Protocol Brief Cognitive Screen What is your name? Normal, Where are you right now? Normal, What year is it? Normal. Oral Mechanism Examination Facial Symmetry: Normal, Motion: Normal, Lip Closure: Normal, Oral Mechanism Result: Normal. 3 oz Water Swallow Challenge: Pt able to drink all water without stopping, coughing, choking or throat clearing: Yes Result: HEMA OZUNA Notified: Phuc Stinson MD. TNKase (Tenecteplase) Screening: Indications: Definite evidence of stroke, ischemic, embolic, or hypertensive: Yes. Treatment will start within 4.5 hours onset of symptoms: Yes. No evidence of intracranial hemorrhage or CT of head and no evidence of peripheral hemorrhage or recent CVA: Yes. 19:46 Candace Swallow Protocol Brief Cognitive Screen What is your name? Where are you right mf3 now? What year is it? Oral Mechanism Examination Facial Symmetry: Motion: Lip Closure: 3 oz Water Swallow Challenge: Pt able to drink all water without stopping, coughing, choking or throat clearing: Result: PASS. 21:15 Reassessment: Patient and/or family updated on plan of care and expected duration. Pain mf3 level reassessed. Patient is alert, oriented x 3, equal unlabored respirations, skin warm/dry/pink. Patient denies pain at this time. Patient states symptoms have improved. Pt a/o x4 upon transfer. pt NIH 0. Report given to SHAHID Booker. Pt and family understanding transfer and poc . 21:34 [place] Swallow Protocol Exclusion Criteria: Exclusion Criteria Result: Proceed. mf3 21:35 Neuro:. mf3 Vital Signs: 18:34 BP 182 / 88; Pulse 88; Resp 17; Temp 98.2; Pulse Ox 96% on R/A; Weight 114.08 kg; dd2 19:30 BP 154 / 81; Pulse 80; Resp 18; Pulse Ox 99% on R/A; mf3 19:45 BP 160 / 77; Pulse 92; Pulse Ox 99% on R/A; mf3 20:00 BP 172 / 74; Pulse 95; Resp 18; Pulse Ox 98% on R/A; mf3 20:15 BP 180 / 94; Pulse 90; Resp 18; Pulse Ox 95% on R/A; mf3 20:30 BP 158 / 99; Pulse 87; Resp 17; Pulse Ox 99% on R/A; mf3 20:45 BP 152 / 84; Pulse 88; Resp 17; Pulse Ox 97% on R/A; mf3 21:00 BP 188 / 99; Pulse 95; Resp 18; Pulse Ox 99% on R/A; mf3 Vitals: 19:46 Cardiac Rhythm Assessment Regular Sinus rhythm. mf3 Olya Coma Score: 19:46 Eye Response: spontaneous(4). Motor Response: obeys commands(6). Verbal Response: mf3 oriented(5). Total: 15. NIH Stroke Scale Scores: 18:07 NIHSS Score: 2 lei 18:50 NIHSS Score: 1 rg5 19:28 NIHSS Score: 0 mf3 19:30 NIHSS Score: 0 mf3 20:00 NIHSS Score: 0 mf3 20:15 NIHSS Score: 0 kb3 20:30 NIHSS Score: 0 mf3 20:45 NIHSS Score: 0 mf3 21:00 NIHSS Score: 0 mf3 ED Course: 18:00 Patient arrived in ED. bd 18:04 Phuc Stinson MD is Attending Physician. lei 18:14 CT Stroke Brain w/o Contrast In Process Unspecified. EDMS 18:14 CT Head Angio In Process Unspecified. EDMS 18:14 CT Neck Angio In Process Unspecified. EDMS 18:25 Demetri Zamora, SHAHID is Primary Nurse. rg5 18:31 Juju initiated transfer with Roxana \Willy\[id number]. kmf 18:37 XRAY Chest (1 view) In Process Unspecified. EDMS 18:38 Triage completed. dd2 18:38 Arm band placed on right wrist. dd2 18:40 Initial lab(s) drawn, by me, sent to lab. Inserted saline lock: 20 gauge in right dd2 antecubital area, using aseptic technique. Blood collected. Flushed with 10 mL NS. 19:30 Inserted saline lock: 20 gauge in left forearm, using aseptic technique. Flushed with mf3 10 mL NS. 19:46 Patient has correct armband on for positive identification. Bed in low position. Call mf3 light in reach. Side rails up X2. Provided Education on: pt educated on POC. 19:46 No provider procedures requiring assistance completed. 3 21:40 Patient transferred, IV remains in place. intact, bleeding controlled, No mf3 redness/swelling at site. Pressure dressing applied. 23:[address] pt was [address] by Dr[address] Chaudhari \T\184. Janet Solano \T\2051. Pt will go to [facility] [address] [place] [address] Bed 20. Number for nurse to nurse report [phone]. Administered Medications: 19:00 Drug: TNK FOR STROKE - Tenecteplase IV (Administer 10 ml NS flush BEFORE and rg5 AFTER tenecteplase) 25 mg IV at per protocol once; 0.25mg/kg, MAX DOSE 25 mg, IVP over 5 seconds {Co-Signature: cm10 (Rosetta Najera RN).} Route: IV; Rate: per protocol; Site: right antecubital; 19:01 Follow up: IV Status: Completed infusion; IV Intake: 5ml kb3 21:38 Follow up: Response: No adverse reaction [facility] 12/19 10:55 Follow up: TNK was administered at 1850 [facility] 12/18 19:50 Drug: foLIC Acid IVPB 1 mg IVPB once Route: IVPB; Site: right antecubital; 3 21:38 Follow up: Response: No adverse reaction 3 21:38 Follow up: IV Status: Completed infusion 3 19:50 Drug: NS 0.9% IV 1000 ml IV at 1000 ml once; to be given as a bolus over 60 minutes 3 Route: IV; Rate: 1000 ml; Site: right antecubital; 21:38 Follow up: Response: No adverse reaction 3 21:38 Follow up: IV Status: Completed infusion kb3 Medication: 19:46 VIS not applicable for this client. [facility] Point of Care Testing: Blood Glucose: 19:15 Blood Glucose: 82 mg/dL; 3 Ranges: Intake: 19:01 IV: 5ml; Total: 5ml. kb3 Outcome: 19:42 ER care complete, transfer ordered by . [facility] 21:39 Transferred by ground EMS to [facility], [facility], [facility] 21:39 Condition: improved 21:39 Instructed on the need for transfer, Demonstrated understanding of follow-up care, 21:40 Patient left the ED. mf3 NIH Stroke Scale - NIH Stroke Score Date: 12/18/2024 Time: 18:07 Total Score = 2 10. Dysarthria (speech clarity - read or repeat words) - 1(Mild to Moderate) 11. Extinction and Inattention (visual/tactile/auditory/spatial/personal) - 0(No abnormality) 1a. Level of Consciousness (LOC) - 0(Alert) 1b. Level of Consciousness (LOC) (Month \T\ Age) - 0(Both) 1c. LOC Commands (Open \T\ Closes Eyes/Puzzle Assembler) - 0(Both) 2. Best Gaze (Lateral Gaze Paresis) - 0(Normal) 3. Visual Field Loss - 0(No visual loss) 4. Facial Palsy - 0(Normal) 5a. Left Arm: Motor (10-second hold) - 0(No drift) 5b. Right Arm: Motor (10-second hold) - 0(No drift) 6a. Left Leg: Motor (5-second hold - always test supine) - 0(No drift) 6b. Right Leg: Motor (5-second hold - always test supine) - 0(No drift) 7. Limb Ataxia (finger/nose \T\ heel/kimbrough - test with eyes open) - 0(Absent) 8. Sensory Loss (pinprick arms/legs/face) - 0(Normal) 9. Best Language: Aphasia (description/naming/reading) - 1(Mild to moderate aphasia) Initials: lei NIH Stroke Scale - NIH Stroke Score Date: 12/18/2024 Time: 18:50 Total Score = 1 10. Dysarthria (speech clarity - read or repeat words) - 0(Normal) 11. Extinction and Inattention (visual/tactile/auditory/spatial/personal) - 0(No abnormality) 1a. Level of Consciousness (LOC) - 0(Alert) 1b. Level of Consciousness (LOC) (Month \T\ Age) - 0(Both) 1c. LOC Commands (Open \T\ Closes Eyes/Puzzle Assembler) - 0(Both) 2. Best Gaze (Lateral Gaze Paresis) - 0(Normal) 3. Visual Field Loss - 0(No visual loss) 4. Facial Palsy - 0(Normal) 5a. Left Arm: Motor (10-second hold) - 0(No drift) 5b. Right Arm: Motor (10-second hold) - 0(No drift) 6a. Left Leg: Motor (5-second hold - always test supine) - 0(No drift) 6b. Right Leg: Motor (5-second hold - always test supine) - 0(No drift) 7. Limb Ataxia (finger/nose \T\ heel/kimbrough - test with eyes open) - 0(Absent) 8. Sensory Loss (pinprick arms/legs/face) - 0(Normal) 9. Best Language: Aphasia (description/naming/reading) - 1(Mild to moderate aphasia) Initials: rg5 NIH Stroke Scale - NIH Stroke Score Date: 12/18/2024 Time: 19:28 Total Score = 0 10. Dysarthria (speech clarity - read or repeat words) - 0(Normal) 11. Extinction and Inattention (visual/tactile/auditory/spatial/personal) - 0(No abnormality) 1a. Level of Consciousness (LOC) - 0(Alert) 1b. Level of Consciousness (LOC) (Month \T\ Age) - 0(Both) 1c. LOC Commands (Open \T\ Closes Eyes/Puzzle Assembler) - 0(Both) 2. Best Gaze (Lateral Gaze Paresis) - 0(Normal) 3. Visual Field Loss - 0(No visual loss) 4. Facial Palsy - 0(Normal) 5a. Left Arm: Motor (10-second hold) - 0(No drift) 5b. Right Arm: Motor (10-second hold) - 0(No drift) 6a. Left Leg: Motor (5-second hold - always test supine) - 0(No drift) 6b. Right Leg: Motor (5-second hold - always test supine) - 0(No drift) 7. Limb Ataxia (finger/nose \T\ heel/kimbrough - test with eyes open) - 0(Absent) 8. Sensory Loss (pinprick arms/legs/face) - 0(Normal) 9. Best Language: Aphasia (description/naming/reading) - 0(No aphasia) Initials: [facility] NIH Stroke Scale - NIH Stroke Score Date: 12/18/2024 Time: 19:30 Total Score = 0 10. Dysarthria (speech clarity - read or repeat words) - 0(Normal) 11. Extinction and Inattention (visual/tactile/auditory/spatial/personal) - 0(No abnormality) 1a. Level of Consciousness (LOC) - 0(Alert) 1b. Level of Consciousness (LOC) (Month \T\ Age) - 0(Both) 1c. LOC Commands (Open \T\ Closes Eyes/Puzzle Assembler) - 0(Both) 2. Best Gaze (Lateral Gaze Paresis) - 0(Normal) 3. Visual Field Loss - 0(No visual loss) 4. Facial Palsy - 0(Normal) 5a. Left Arm: Motor (10-second hold) - 0(No drift) 5b. Right Arm: Motor (10-second hold) - 0(No drift) 6a. Left Leg: Motor (5-second hold - always test supine) - 0(No drift) 6b. Right Leg: Motor (5-second hold - always test supine) - 0(No drift) 7. Limb Ataxia (finger/nose \T\ heel/kimbrough - test with eyes open) - 0(Absent) 8. Sensory Loss (pinprick arms/legs/face) - 0(Normal) 9. Best Language: Aphasia (description/naming/reading) - 0(No aphasia) Initials: [facility] NIH Stroke Scale - NIH Stroke Score Date: 12/18/2024 Time: 20:00 Total Score = 0 10. Dysarthria (speech clarity - read or repeat words) - 0(Normal) 11. Extinction and Inattention (visual/tactile/auditory/spatial/personal) - 0(No abnormality) 1a. Level of Consciousness (LOC) - 0(Alert) 1b. Level of Consciousness (LOC) (Month \T\ Age) - 0(Both) 1c. LOC Commands (Open \T\ Closes Eyes/Puzzle Assembler) - 0(Both) 2. Best Gaze (Lateral Gaze Paresis) - 0(Normal) 3. Visual Field Loss - 0(No visual loss) 4. Facial Palsy - 0(Normal) 5a. Left Arm: Motor (10-second hold) - 0(No drift) 5b. Right Arm: Motor (10-second hold) - 0(No drift) 6a. Left Leg: Motor (5-second hold - always test supine) - 0(No drift) 6b. Right Leg: Motor (5-second hold - always test supine) - 0(No drift) 7. Limb Ataxia (finger/nose \T\ heel/kimbrough - test with eyes open) - 0(Absent) 8. Sensory Loss (pinprick arms/legs/face) - 0(Normal) 9. Best Language: Aphasia (description/naming/reading) - 0(No aphasia) Initials: mf3 NIH Stroke Scale - NIH Stroke Score Date: 12/18/2024 Time: 20:15 Total Score = 0 10. Dysarthria (speech clarity - read or repeat words) - 0(Normal) 11. Extinction and Inattention (visual/tactile/auditory/spatial/personal) - 0(No abnormality) 1a. Level of Consciousness (LOC) - 0(Alert) 1b. Level of Consciousness (LOC) (Month \T\ Age) - 0(Both) 1c. LOC Commands (Open \T\ Closes Eyes/Puzzle Assembler) - 0(Both) 2. Best Gaze (Lateral Gaze Paresis) - 0(Normal) 3. Visual Field Loss - 0(No visual loss) 4. Facial Palsy - 0(Normal) 5a. Left Arm: Motor (10-second hold) - 0(No drift) 5b. Right Arm: Motor (10-second hold) - 0(No drift) 6a. Left Leg: Motor (5-second hold - always test supine) - 0(No drift) 6b. Right Leg: Motor (5-second hold - always test supine) - 0(No drift) 7. Limb Ataxia (finger/nose \T\ heel/kimbrough - test with eyes open) - 0(Absent) 8. Sensory Loss (pinprick arms/legs/face) - 0(Normal) 9. Best Language: Aphasia (description/naming/reading) - 0(No aphasia) Initials: kb3 NIH Stroke Scale - NIH Stroke Score Date: 12/18/2024 Time: 20:30 Total Score = 0 10. Dysarthria (speech clarity - read or repeat words) - 0(Normal) 11. Extinction and Inattention (visual/tactile/auditory/spatial/personal) - 0(No abnormality) 1a. Level of Consciousness (LOC) - 0(Alert) 1b. Level of Consciousness (LOC) (Month \T\ Age) - 0(Both) 1c. LOC Commands (Open \T\ Closes Eyes/Puzzle Assembler) - 0(Both) 2. Best Gaze (Lateral Gaze Paresis) - 0(Normal) 3. Visual Field Loss - 0(No visual loss) 4. Facial Palsy - 0(Normal) 5a. Left Arm: Motor (10-second hold) - 0(No drift) 5b. Right Arm: Motor (10-second hold) - 0(No drift) 6a. Left Leg: Motor (5-second hold - always test supine) - 0(No drift) 6b. Right Leg: Motor (5-second hold - always test supine) - 0(No drift) 7. Limb Ataxia (finger/nose \T\ heel/kimbrough - test with eyes open) - 0(Absent) 8. Sensory Loss (pinprick arms/legs/face) - 0(Normal) 9. Best Language: Aphasia (description/naming/reading) - 0(No aphasia) Initials: mf3 NIH Stroke Scale - NIH Stroke Score Date: 12/18/2024 Time: 20:45 Total Score = 0 10. Dysarthria (speech clarity - read or repeat words) - 0(Normal) 11. Extinction and Inattention (visual/tactile/auditory/spatial/personal) - 0(No abnormality) 1a. Level of Consciousness (LOC) - 0(Alert) 1b. Level of Consciousness (LOC) (Month \T\ Age) - 0(Both) 1c. LOC Commands (Open \T\ Closes Eyes/Puzzle Assembler) - 0(Both) 2. Best Gaze (Lateral Gaze Paresis) - 0(Normal) 3. Visual Field Loss - 0(No visual loss) 4. Facial Palsy - 0(Normal) 5a. Left Arm: Motor (10-second hold) - 0(No drift) 5b. Right Arm: Motor (10-second hold) - 0(No drift) 6a. Left Leg: Motor (5-second hold - always test supine) - 0(No drift) 6b. Right Leg: Motor (5-second hold - always test supine) - 0(No drift) 7. Limb Ataxia (finger/nose \T\ heel/kimbrough - test with eyes open) - 0(Absent) 8. Sensory Loss (pinprick arms/legs/face) - 0(Normal) 9. Best Language: Aphasia (description/naming/reading) - 0(No aphasia) Initials: mf3 NIH Stroke Scale - NIH Stroke Score Date: 12/18/2024 Time: 21:00 Total Score = 0 10. Dysarthria (speech clarity - read or repeat words) - 0(Normal) 11. Extinction and Inattention (visual/tactile/auditory/spatial/personal) - 0(No abnormality) 1a. Level of Consciousness (LOC) - 0(Alert) 1b. Level of Consciousness (LOC) (Month \T\ Age) - 0(Both) 1c. LOC Commands (Open \T\ Closes Eyes/Puzzle Assembler) - 0(Both) 2. Best Gaze (Lateral Gaze Paresis) - 0(Normal) 3. Visual Field Loss - 0(No visual loss) 4. Facial Palsy - 0(Normal) 5a. Left Arm: Motor (10-second hold) - 0(No drift) 5b. Right Arm: Motor (10-second hold) - 0(No drift) 6a. Left Leg: Motor (5-second hold - always test supine) - 0(No drift) 6b. Right Leg: Motor (5-second hold - always test supine) - 0(No drift) 7. Limb Ataxia (finger/nose \T\ heel/kimbrough - test with eyes open) - 0(Absent) 8. Sensory Loss (pinprick arms/legs/face) - 0(Normal) 9. Best Language: Aphasia (description/naming/reading) - 0(No aphasia) Initials: 3 Signatures: Dispatcher [employer] EDNeli Strickland Corey, MD MD cha Leal, Jahala, RN RN [id number] Vanessa Hager, RN RN [email or web address] Rhiannon Alvarado [facility] Demetri Zamora RN RN [id number] SAVAGE CALDERA RN RN dd2 Swapna Edmond RN RN mf3 Rosetta Najera RN [id number] Corrections: (The following items were deleted from the chart) 12/19 10:32 10:25 Pre-hospital glucose is not applicable to this patient. jl7 jl7 10:49 12/18 20:15 NIHSS Score: 1 3 kb3
[2024-12-18 22:48] VITALS: TEMP 98.2
[2024-12-18 23:00] VITALS: BP 188/99; O2SAT 99
== END 2024-12-18 21:40 | disposition short-term general hospital (02) ==
LOC: ER 17:52
DX: I63.9 Cerebral infarction, unspecified (principal); R47.01 Aphasia; R29.702 NIHSS score 2
CPT/HCPCS: 96365; 92977; 93005; 85025; 80048; 36415; 83735; 85610; 82947; 80076; 84484; 83880; 70496; 70498; 70450; 71045; 96375; 99291; 96366; Q9967; J3101; J7030